=== PATIENT | male | born 1995 | race Caucasian/White ===

== ENCOUNTER 2016-09-06 06:05 | Emergency (ER) | payer BC ==
[2016-09-06] MEDS ORDERED: IPRATROPIUM/ALBUTEROL 0.5-2.5 MG/3 ML AMPUL NEB ONE (06:19)
[2016-09-06] MEDS ORDERED: PREDNISONE 20 MG TABLET PO ONE (06:19)
[2016-09-06] MEDS: ALBUTEROL SULFATE 0.083% NEB 2.5 MG/3 ML AMPUL NEB SCH ×2 (06:45→06:55)
--- NOTE | 2016-09-06 07:20 | ER Document Report ---
ED General - General Chief Complaint: Asthma Exacerbation Stated Complaint: DIFFICULTY BREATHING Mode of Arrival: Ambulatory Information source: Patient Notes: Patient presents to the emergency department with complaints of asthma flare the started this morning at 0500 when he woke up from work. Patient reports history of asthma his whole life. He denies intubation reports he's been hospitalized for asthma one time when he was in the fifth grade. Denies fever vomiting diarrhea. Just returned from [place]. TRAVEL OUTSIDE OF THE [place] IN LAST 30 DAYS: Yes - HPI Onset: This morning Onset/Duration: Sudden Quality of pain: No pain Severity: None Associated symptoms: None Exacerbated by: Denies Relieved by: Denies Similar symptoms previously: Yes Recently seen / treated by doctor: No - Related Data Allergies/Adverse Reactions: peanut Allergy (Verified 07/09/16 14:42) Past Medical History - General Information source: Patient - Social History Smoking Status: Unknown if Ever Smoked Cigarette use (# per day): No Chew tobacco use (# tins/day): No Frequency of alcohol use: Occasional Drug Abuse: None Occupation: construction Family History: DM - Mother, Other - MS mother Patient has suicidal ideation: No Patient has homicidal ideation: No Pulmonary Medical History: Reports: Hx Asthma Renal/ Medical History: Denies: Hx Peritoneal Dialysis Past Surgical History: Reports: Hx Adenoidectomy, Hx Tonsillectomy - Immunizations Hx Diphtheria, Pertussis, Tetanus Vaccination: No Review of Systems - Review of Systems Notes: Review HPI for review of systems., All other systems negative Physical Exam - Vital signs Vitals: Temp Pulse BP Pulse Ox 97.3 F 95 132/65 H 95 09/06/16 06:14 09/06/16 06:14 09/06/16 06:14 09/06/16 06:14 - Notes Notes: PHYSICAL EXAMINATION: GENERAL: Well-appearing and in no acute distress HEAD: Atraumatic, normocephalic. EYES: Pupils equal round , extraocular movements intact, sclera anicteric, conjunctiva are normal. ENT: nares patent, oropharynx clear without exudates. Moist mucous membranes. NECK: Normal range of motion, supple without lymphadenopathy LUNGS: CTAB and equal. faint bilateral expiratory anterior wheezes HEART: Regular rate and rhythm without murmurs ABDOMEN: Soft, no tenderness. No guarding, no rebound BACK: Denies pain EXTREMITIES: Normal range of motion, no pitting edema. No cyanosis. NEUROLOGICAL: Cranial nerves grossly intact. Normal sensory/motor PSYCH: Normal mood, normal affect. SKIN: Warm, Dry, normal turgor, no rashes or lesions noted Course - Re-evaluation Re-evalutation: 09/06/16 08:18 No wheezes respiratory rate even and unlabored patient ready to be discharged. Instructed on inhaler and steroids verbalized understanding. - Vital Signs Vital signs: Temp Pulse Resp BP Pulse Ox 98.0 F 82 16 128/62 H 97 09/06/16 08:27 09/06/16 08:27 09/06/16 08:27 09/06/16 08:27 09/06/16 08:27 - Diagnostic Test Radiology reviewed: Image reviewed, Reports reviewed - neg Discharge - Discharge Clinical Impression: Asthma Qualifiers: Asthma severity: unspecified severity Asthma complication type: uncomplicated Qualified Code(s): J45.909 - Unspecified asthma, uncomplicated Condition: Stable Disposition: HOME, SELF-CARE Instructions: Inhaled Bronchodilators (OM), Asthma (OM), Steroid Medication Additional Instructions: *You have been evaluated for asthma *Take medication as prescribed *Use inhaler as prescribed *Increase fluids *Monitor your temperature, take Tylenol as indicated *Follow up with a primary care provider within one week for recheck *Return to ED for increasing fever, cough, worsening condition, changes, needs Prescriptions: Prednisone [Deltasone 10 mg Tablet] 10 mg PO ASDIR PRN #15 tablet PRN Reason: Forms: Return to Work
[2016-09-06] MEDS ORDERED: ALBUTEROL SULFATE 0.083% NEB 2.5 MG/3 ML AMPUL NEB ONE (07:26)
[2016-09-06] MEDS ORDERED: ALBUTEROL SULFATE HFA (90 MCG/PUFF) 8 GM MDI (1 MDI/ER DISP) IH ONE (07:26)
[2016-09-06 08:40] VITALS: BP 128/62
== END 2016-09-06 08:34 | disposition home or self-care (01) ==
LOC: ER 06:05
DX: J45.909 Unspecified asthma, uncomplicated (principal); R06.02 Shortness of breath
CPT/HCPCS: 94640 ×2; 99284; 71020; J7512; J3490; J7620

== ENCOUNTER 2017-01-01 19:46 | Emergency (ER) | payer BC ==
--- NOTE | 2017-01-01 21:32 | ER Document Report ---
ED GI/ - General Chief Complaint: Possible STD exposure Stated Complaint: POSSIBLE STD EXPOSURE Time Seen by Provider: 01/01/17 21:19 Mode of Arrival: Ambulatory Information source: Patient Notes: 21-year-old male presents to ED for complaint of exposure to STDs. His partner was seen yesterday and tested positive for gonorrhea. He is here to be tested for STDs and treated. He states he has a history of asthma eczema fractured nose T&A and repair of a Fractured nose. Smokes a half pack a day rarely drinks and does not do drugs. TRAVEL OUTSIDE OF THE [place] IN LAST 30 DAYS: No - HPI Patient complains to provider of: Other - STD exposure Timing/Duration: Gradual Quality of pain: No pain Pain Level: Denies Sexual history: STD exposure Associated symptoms: Other - STD exposure Exacerbated by: Denies Relieved by: Denies Similar symptoms previously: No Recently seen / treated by doctor: No - Related Data Allergies/Adverse Reactions: peanut Allergy (Verified 07/09/16 14:42) Past Medical History - General Information source: Patient - Social History Smoking Status: Current Every Day Smoker Cigarette use (# per day): Yes - half pack a day Chew tobacco use (# tins/day): No Smoking Education Provided: Yes - less than 2 minutes Frequency of alcohol use: Rare Drug Abuse: None Occupation: construction Lives with: Alone Family History: Arthritis, CAD, DM - Mother, Hyperlipidemia, Hypertension, Other - MS mother Patient has suicidal ideation: No Patient has homicidal ideation: No - Past Medical History Cardiac Medical History: Reports: None Pulmonary Medical History: Reports: Hx Asthma EENT Medical History: Reports: None Neurological Medical History: Reports: None Endocrine Medical History: Reports: None Renal/ Medical History: Reports: None Malignancy Medical History: Reports None GI Medical History: Reports: None Musculoskeltal Medical History: Reports None Skin Medical History: Reports None Psychiatric Medical History: Reports: None Traumatic Medical History: Reports: None Infectious Medical History: Reports: None Past Surgical History: Reports: Hx Adenoidectomy, Hx Tonsillectomy - Immunizations Hx Diphtheria, Pertussis, Tetanus Vaccination: No Review of Systems - Review of Systems Constitutional: No symptoms reported EENT: No symptoms reported Cardiovascular: No symptoms reported Respiratory: No symptoms reported Gastrointestinal: No symptoms reported Genitourinary: No symptoms reported Male Genitourinary: No symptoms reported. denies: Penile discharge Musculoskeletal: No symptoms reported Skin: No symptoms reported Hematologic/Lymphatic: No symptoms reported Neurological/Psychological: No symptoms reported -: Yes All other systems reviewed and negative Physical Exam - Vital signs Vitals: Temp Pulse Resp BP Pulse Ox 97.5 F 87 18 121/70 96 01/01/17 19:58 01/01/17 19:58 01/01/17 19:58 01/01/17 19:58 01/01/17 19:58 Interpretation: Normal - General General appearance: Appears well, Alert - HEENT Head: Normocephalic, Atraumatic Eyes: Normal Pupils: PERRL - Respiratory Respiratory status: No respiratory distress Chest status: Nontender Breath sounds: Normal Chest palpation: Normal - Cardiovascular Rhythm: Regular Heart sounds: Normal auscultation Murmur: No - Abdominal Inspection: Normal Distension: No distension Bowel sounds: Normal Tenderness: Nontender Organomegaly: No organomegaly - Back Back: Normal, Nontender - Extremities General upper extremity: Normal inspection, Nontender, Normal color, Normal ROM , Normal temperature General lower extremity: Normal inspection, Nontender, Normal color, Normal ROM , Normal temperature, Normal weight bearing. No: Orin's sign - Neurological Neuro grossly intact: Yes Cognition: Normal Orientation: AAOx4 Annette Coma Scale Eye Opening: Spontaneous Annette Coma Scale Verbal: Oriented [place] Coma Scale Motor: Obeys Commands Annette Coma Scale Total: 15 Speech: Normal Motor strength normal: LUE, RUE, LLE, RLE Sensory: Normal - Psychological Associated symptoms: Normal affect, Normal mood - Skin Skin Temperature: Warm Skin Moisture: Dry Skin Color: Normal Course - Vital Signs Vital signs: Temp Pulse Resp BP Pulse Ox 97.5 F 76 18 124/66 97 01/01/17 19:58 01/01/17 22:00 01/01/17 22:00 01/01/17 22:00 01/01/17 22:00 Discharge - Discharge Clinical Impression: STD exposure Condition: Stable Disposition: HOME, SELF-CARE Instructions: Family Physicians / Practices Additional Instructions: You state your partner was positive for STDs gonorrhea. I have sent urine to test you also treated you so that she will not have to return back when your test comes back. I also sent a urine test for urinary tract infection. CEPHALOSPORINS: An antibiotic of the cephalosporin class has been prescribed. This type of antibiotic covers a wide variety of infections, including those of the skin, lungs, middle ear, and urinary tract. This antibiotic is somewhat similar to the penicillin family. In rare cases , a person who is allergic to penicillin will also be allergic to this medication. If you have had a severe allergic reaction to penicillin, and have not taken this antibiotic since that time, notify your doctor. Antibiotics which cover many germs ("broad spectrum" antibiotics) are more likely to cause diarrhea or "yeast" infections. Women prone to vaginal yeast problems may suffer an attack after taking this antibiotic. In infants, oral thrush (white spots "stuck" on the cheek) or yeast diaper rash may result. See your doctor if these problems occur. Call the doctor at once if you develop hives, itching, shortness of breath , or lightheadedness. AZITHROMYCIN: Azithromycin (Zithromax) is a broad spectrum antibiotic in the same class as erythromycin. It can treat a variety of bacterial infections, but is most frequently used for respiratory infections. Azithromycin is extremely long-lasting. It accumulates in body tissues and continues to kill bacteria for many days. In order to improve absorption, Azithromycin should be taken at least one hour before or two hours after a meal. It does not have the same strong tendency to upset the stomach as erythromycin and is usually very well tolerated. Patients who have had a rash or other true allergic reactions to erythromycin should not take this medication. Call if you develop gastrointestinal distress, severe diarrhea, rash, hives, itching, or shortness of breath. FOLLOW-UP CARE: If you have been referred to a physician for follow-up care, call the physician s office for an appointment as you were instructed or within the next two days. If you experience worsening or a significant change in your symptoms, notify the physician immediately or return to the Emergency Department at any time for re-evaluation. Forms: Return to Work
[2017-01-01] MEDS ORDERED: LIDOCAINE 1% INJ-PF (10 MG/ML) 30 ML SDV INJ ONE (21:36)
[2017-01-01] MEDS ORDERED: AZITHROMYCIN 250 MG TABLET PO ONE (21:36)
[2017-01-01] MEDS ORDERED: CEFTRIAXONE INJ 500 MG VIAL IM ONE (21:36)
[2017-01-01 21:56] LABS: APPEARANCE,URINE CLEAR; BILIRUBIN,URINE NEGATIVE (NEGATIVE); GLUCOSE, URINE NEGATIVE (NEGATIVE); KETONES,URINE NEGATIVE (NEGATIVE); LEUKOCYTE ESTERASE,URINE NEGATIVE (NEGATIVE); NITRITE,URINE NEGATIVE (NEGATIVE); PROTEIN,URINE NEGATIVE (NEGATIVE); URINE SPECIFIC GRAVITY 1.031; UROBILINOGEN,URINE NEGATIVE mg/dL (<2.0)
[2017-01-01 22:42] VITALS: BP 124/66
[2017-01-01 23:17] LABS: CHLAM PCR NOT DETECTED (NOT DETECT)
== END 2017-01-01 22:25 | disposition home or self-care (01) ==
LOC: ER 19:46
DX: Z20.2 Contact with and (suspected) exposure to infections with a predominantly sexual mode of transmission (principal); F17.210 Nicotine dependence, cigarettes, uncomplicated; Z91.010 Allergy to peanuts
CPT/HCPCS: 99283; 96372; 81001; 87491; 87591; J3490; J0696

== ENCOUNTER 2017-04-05 12:45 | Emergency (ER) | payer BC ==
[2017-04-05 12:50] VITALS: BP 137/89
[2017-04-05] MEDS ORDERED: ALBUTEROL SULFATE 0.083% NEB 2.5 MG/3 ML AMPUL NEB ONE (13:04)
[2017-04-05] MEDS ORDERED: IPRATROPIUM/ALBUTEROL 0.5-2.5 MG/3 ML AMPUL NEB ONE (13:04)
[2017-04-05] MEDS ORDERED: PREDNISONE 20 MG TABLET PO ONE (13:04)
[2017-04-05] MEDS ORDERED: ALBUTEROL SULFATE HFA (90 MCG/PUFF) 8 GM MDI (1 MDI/ER DISP) IH ONE (13:07)
--- NOTE | 2017-04-05 13:50 | ER Document Report ---
ED General - General Chief Complaint: Breathing Difficulty Stated Complaint: DIFFICULTY BREATHING Time Seen by Provider: 04/05/17 13:04 TRAVEL OUTSIDE OF THE [place] IN LAST 30 DAYS: No - HPI Patient complains to provider of: Shortness of breath Notes: Patient coming in for evaluation shortness of breath. Patient states ongoing for approximately a week with the weather changes. Denies any recent travel denies any fevers chills nausea vomiting. Patient states ran out of his inhalers earlier this morning. Requesting medication refill. - Related Data Allergies/Adverse Reactions: peanut Allergy (Verified 04/05/17 12:50) Past Medical History - Social History Smoking Status: Former Smoker Chew tobacco use (# tins/day): No Frequency of alcohol use: None Drug Abuse: None Family History: Arthritis, CAD, DM - Mother, Hyperlipidemia, Hypertension, Other - MS mother Pulmonary Medical History: Reports: Hx Asthma Renal/ Medical History: Denies: Hx Peritoneal Dialysis Past Surgical History: Reports: Hx Adenoidectomy, Hx Tonsillectomy - Immunizations Hx Diphtheria, Pertussis, Tetanus Vaccination: No Review of Systems - Review of Systems Constitutional: No symptoms reported EENT: No symptoms reported Cardiovascular: No symptoms reported Respiratory: Short of breath, Wheezing Gastrointestinal: No symptoms reported Genitourinary: No symptoms reported Male Genitourinary: No symptoms reported Musculoskeletal: No symptoms reported Skin: No symptoms reported Hematologic/Lymphatic: No symptoms reported Neurological/Psychological: No symptoms reported -: Yes All other systems reviewed and negative Physical Exam - Vital signs Vitals: Temp Pulse Resp BP Pulse Ox 98.3 F 91 18 137/89 H 100 04/05/17 12:47 04/05/17 12:47 04/05/17 12:47 04/05/17 12:47 04/05/17 12:47 Interpretation: Normal - General General appearance: Appears well, Alert - HEENT Head: Normocephalic, Atraumatic Eyes: Normal Pupils: PERRL - Respiratory Respiratory status: No respiratory distress Chest status: Nontender Breath sounds: Rhonchi, Wheezing Chest palpation: Normal - Cardiovascular Rhythm: Regular Heart sounds: Normal auscultation Murmur: No - Abdominal Inspection: Normal Distension: No distension Bowel sounds: Normal Tenderness: Nontender Organomegaly: No organomegaly - Back Back: Normal, Nontender - Extremities General upper extremity: Normal inspection, Nontender, Normal color, Normal ROM , Normal temperature General lower extremity: Normal inspection, Nontender, Normal color, Normal ROM , Normal temperature, Normal weight bearing. No: Orin's sign - Neurological Neuro grossly intact: Yes Cognition: Normal Orientation: AAOx4 [place] Coma Scale Eye Opening: Spontaneous Annette Coma Scale Verbal: Oriented [place] Coma Scale Motor: Obeys Commands Annette Coma Scale Total: 15 Speech: Normal Motor strength normal: LUE, RUE, LLE, RLE Sensory: Normal - Psychological Associated symptoms: Normal affect, Normal mood - Skin Skin Temperature: Warm Skin Moisture: Dry Skin Color: Normal Course - Re-evaluation Re-evalutation: 04/05/17 16:09 Patient given breathing treatments here in the ER and prednisone feeling much better after breathing treatments lung sounds reexamined lungs not clear. Patient will be discharged home to follow-up with primary care physician. - Vital Signs Vital signs: Temp Pulse Resp BP Pulse Ox 98.3 F 91 18 137/89 H 100 04/05/17 12:47 04/05/17 12:47 04/05/17 12:47 04/05/17 12:47 04/05/17 12:47 Discharge - Discharge Clinical Impression: Asthma exacerbation Condition: Good Disposition: HOME, SELF-CARE Instructions: Asthma ([facility]) Additional Instructions: Take medication as prescribed. Return to the ER symptoms worsen. Prescriptions: Albuterol Sulfate [Proair HFA] 1 - 2 puff IH Q4 PRN #1 inhaler PRN Reason: Prednisone [Deltasone] 60 mg PO DAILY 5 Days Forms: Return to Work
== END 2017-04-05 14:11 | disposition home or self-care (01) ==
LOC: ER 12:45
DX: J45.901 Unspecified asthma with (acute) exacerbation (principal); R06.02 Shortness of breath; Z87.891 Personal history of nicotine dependence
CPT/HCPCS: 94640 ×2; 99284; J7512; J3490; J7620

== ENCOUNTER 2017-07-11 15:24 | Emergency (ER) | payer BC ==
[2017-07-11 15:47] VITALS: BP 106/63
[2017-07-11] MEDS ORDERED: ALBUTEROL SULFATE HFA (90 MCG/PUFF) 8 GM MDI (1 MDI/ER DISP) IH PRN (16:56)
--- NOTE | 2017-07-11 17:00 | ER Document Report ---
ED General - General Chief Complaint: Asthma Exacerbation Stated Complaint: DIFFICULTY BREATHING Time Seen by Provider: 07/11/17 16:30 Mode of Arrival: Ambulatory Information source: Patient Notes: 22-year-old male history of asthma presents with complaints of asthma exacerbation. Patient notes once he gets inhaler he feels much better. He denies any fevers or chills admits to tightness. Denies any significant shortness of breath TRAVEL OUTSIDE OF THE [place] IN LAST 30 DAYS: No - HPI Onset: Yesterday Onset/Duration: Sudden Quality of pain: No pain Severity: Mild Pain Level: Denies Associated symptoms: Nonproductive cough, Shortness of breath Exacerbated by: Denies Relieved by: Denies Similar symptoms previously: Yes Recently seen / treated by doctor: No - Related Data Allergies/Adverse Reactions: peanut Allergy (Verified 07/11/17 15:46) Past Medical History - Social History Smoking Status: Never Smoker Cigarette use (# per day): No Chew tobacco use (# tins/day): No Smoking Education Provided: No Frequency of alcohol use: None Drug Abuse: None Family History: Arthritis, CAD, DM - Mother, Hyperlipidemia, Hypertension, Other - MS mother Patient has suicidal ideation: No Patient has homicidal ideation: No Pulmonary Medical History: Reports: Hx Asthma Renal/ Medical History: Denies: Hx Peritoneal Dialysis Past Surgical History: Reports: Hx Adenoidectomy, Hx Tonsillectomy - Immunizations Hx Diphtheria, Pertussis, Tetanus Vaccination: No Review of Systems - Review of Systems Notes: REVIEW OF SYSTEMS: CONSTITUTIONAL : Denies fever, chills, or sweats. Denies recent illness. EENT: Denies eye, ear, throat, or mouth pain or symptoms. Denies nasal or sinus congestion or discharge. Denies throat, tongue, or mouth swelling or difficulty swallowing. CARDIOVASCULAR: Denies chest pain. Denies palpitations or racing or irregular heart beat. Denies ankle edema. RESPIRATORY: Shortness of breath wheezing GASTROINTESTINAL: Denies abdominal pain or distention. Denies nausea, vomiting , or diarrhea. Denies blood in vomitus, stools, or per rectum. Denies black, tarry stools. Denies constipation. GENITOURINARY: Denies difficulty urinating, painful urination, burning, frequency, blood in urine, or discharge. MUSCULOSKELETAL: Denies back or neck pain or stiffness. Denies joint pain or swelling. SKIN: Denies rash, lesions or sores. HEMATOLOGIC : Denies easy bruising or bleeding. LYMPHATIC: Denies swollen, enlarged glands. NEUROLOGICAL: Denies confusion or altered mental status. Denies passing out or loss of consciousness. Denies dizziness or lightheadedness. Denies headache. Denies weakness or paralysis or loss of use of either side. Denies problems with gait or speech. Denies sensory loss, numbness, or tingling. Denies seizures. PSYCHIATRIC: Denies anxiety or stress. Denies depression, suicidal ideation, or homicidal ideation. ALL OTHER SYSTEMS REVIEWED AND NEGATIVE. Dictation was performed using [employer] voice recognition software PHYSICAL EXAMINATION: GENERAL: Well-appearing, well-nourished and in no acute distress. HEAD: Atraumatic, normocephalic. EYES: Pupils equal round and reactive to light, extraocular movements intact, sclera anicteric, conjunctiva are normal. ENT: Nares patent, oropharynx clear without exudates. Moist mucous membranes. NECK: Normal range of motion, supple without lymphadenopathy LUNGS: Coarse inspiratory expiratory wheezing all throughout HEART: Regular rate and rhythm without murmurs ABDOMEN: Soft, nontender, nondistended abdomen. No guarding, no rebound. No masses appreciated. Musculoskeletal: Normal range of motion, no pitting or edema. No cyanosis. NEUROLOGICAL: Cranial nerves grossly intact. Normal speech, normal gait. Normal sensory, motor exams PSYCH: Normal mood, normal affect. SKIN: Warm, Dry, normal turgor, no rashes or lesions noted. Physical Exam - Vital signs Vitals: Temp Pulse Resp BP Pulse Ox 98.6 F 90 16 106/63 97 07/11/17 15:44 07/11/17 15:44 07/11/17 15:44 07/11/17 15:44 07/11/17 15:44 Course - Re-evaluation Re-evalutation: 07/11/17 16:59 Patient requests information for sleep apnea I will give him a cat scan technologist for this I did offer breathing treatments here he defers states he gets very shaky after breathing treatments and just wants an inhaler After performing a Medical Screening Examination, I estimate there is LOW risk for ACUTE CORONARY SYNDROME, PULMONARY EMBOLI, RESPIRATORY FAILURE, SEPSIS OR MENINGITIS, thus I consider the discharge disposition reasonable. I have reevaluated this patient multiple times and no significant life threatening changes are noted. The patient and I have discussed the diagnosis and risks, and we agree with discharging home with close follow-up. We also discussed returning to the Emergency Department immediately if new or worsening symptoms occur. We have discussed the symptoms which are most concerning (e.g., changing or worsening pain, trouble swallowing or breathing, neck stiffness, fever) that necessitate immediate return. - Vital Signs Vital signs: Temp Pulse Resp BP Pulse Ox 98.6 F 90 16 106/63 97 07/11/17 15:44 07/11/17 15:44 07/11/17 15:44 07/11/17 15:44 07/11/17 15:44 Discharge - Discharge Clinical Impression: Asthma exacerbation Qualifiers: Asthma severity: mild Asthma persistence: intermittent Qualified Code(s): J45.21 - Mild intermittent asthma with (acute) exacerbation Condition: Stable Disposition: HOME, SELF-CARE Instructions: Asthma ([facility]) Prescriptions: Albuterol Sulfate [Proair HFA Inhalation Aerosol 8.5 gm MDI] 2 puff IH Q4H PRN # 1 mdi PRN Reason: Prednisone [Deltasone 20 mg Tablet] 3 tab PO DAILY 5 Days tablet Referrals: JOYCE GARZA MD [ACTIVE STAFF] - Follow up tomorrow
== END 2017-07-11 17:08 | disposition home or self-care (01) ==
LOC: ER 15:24
DX: J45.21 Mild intermittent asthma with (acute) exacerbation (principal); Z91.010 Allergy to peanuts
CPT/HCPCS: 99284; J3490

== ENCOUNTER 2017-10-20 10:19 | Emergency (ER) | payer BC ==
[2017-10-20 10:25] VITALS: BP 129/69
[2017-10-20] MEDS ORDERED: ALBUTEROL SULFATE HFA (90 MCG/PUFF) 8 GM MDI (1 MDI/ER DISP) IH PRN (10:39)
--- NOTE | 2017-10-20 10:41 | ER Document Report ---
ED General - General TRAVEL OUTSIDE OF THE [place] IN LAST 30 DAYS: No - General Chief Complaint: Asthma Exacerbation Stated Complaint: DIFFICULTY BREATHING Time Seen by Provider: 10/20/17 10:32 Notes: 22 y.o male presents to the ED with asthma and need for an inhaler prescription. He states that he has asthma that worsens in the spring with pollen where he needs to use the inhaler 2-3 times a day. He has not been hospitalized for asthma since age 4 or 5. he denies any fever or productive cough. (DARRICK NERI) - Related Data Allergies/Adverse Reactions: peanut Allergy (Verified 07/11/17 15:46) Past Medical History - General Information source: Patient - Social History Smoking Status: Former Smoker Chew tobacco use (# tins/day): No Frequency of alcohol use: None Drug Abuse: None Family History: Arthritis, CAD, DM - Mother, Hyperlipidemia, Hypertension, Other - MS mother Patient has suicidal ideation: No Patient has homicidal ideation: No Pulmonary Medical History: Reports: Hx Asthma Renal/ Medical History: Denies: Hx Peritoneal Dialysis Past Surgical History: Reports: Hx Adenoidectomy, Hx Tonsillectomy - Immunizations Hx Diphtheria, Pertussis, Tetanus Vaccination: No Review of Systems - Review of Systems Constitutional: denies: Fever Respiratory: See HPI, Other - asthma. denies: Cough, Sputum Physical Exam - General General appearance: Appears well, Alert In distress: None - Respiratory Breath sounds: Wheezing, Other - Good air movement - Cardiovascular Rhythm: Regular Heart sounds: Normal auscultation Murmur: No - Abdominal Distension: No distension - Extremities General upper extremity: Normal inspection, Normal ROM General lower extremity: Normal inspection, Normal ROM - Neurological Neuro grossly intact: Yes Cognition: Normal Orientation: AAOx4 - Psychological Associated symptoms: Normal affect, Normal mood - Skin Skin Temperature: Warm Skin Moisture: Dry Skin Color: Normal - Vital signs Vitals: Temp Pulse Resp BP Pulse Ox 97.8 F 75 18 129/69 H 96 10/20/17 10:10/20/17 10:10/20/17 10:10/20/17 10:10/20/17 10:22 - Vital Signs Vital signs: Temp Pulse Resp BP Pulse Ox 97.8 F 75 18 129/69 H 96 10/20/17 10:10/20/17 10:22 10/20/17 10:22 10/20/17 10:22 10/20/17 10:22 Discharge - Discharge Condition: Stable Disposition: HOME, SELF-CARE Prescriptions: Montelukast Sodium [Singulair 10 mg Tablet] 10 mg PO QHS #30 tablet Albuterol Sulfate [Proair HFA Inhalation Aerosol 8.5 gm MDI] 2 puff IH Q4H PRN # 1 mdi PRN Reason: Prednisone [Deltasone 20 mg Tablet] 2 tab PO DAILY 10 Days tablet Scribe Attestation: 10/21/17 23:07 I personally performed the services described documentation, reviewed and edited the documentation which was dictated to describe my presence, and it accurately records my words and actions. (LEI NOE) Scribe Documentation - Scribe Written by Héctor:: Héctor Tomas, 10/20/17 1043 acting as scribe for :: Jamal
== END 2017-10-20 10:57 | disposition home or self-care (01) ==
LOC: ER 10:19
DX: J45.901 Unspecified asthma with (acute) exacerbation (principal); R06.02 Shortness of breath; Z87.891 Personal history of nicotine dependence
CPT/HCPCS: 99284; J3490

== ENCOUNTER 2017-12-01 15:19 | Emergency (ER) | payer BC ==
[2017-12-01 15:31] VITALS: BP 129/89
[2017-12-01] MEDS ORDERED: IPRATROPIUM/ALBUTEROL 0.5-2.5 MG/3 ML AMPUL NEB ONE (15:40)
[2017-12-01] MEDS ORDERED: DEXAMETHASONE SOD PHOS INJ 10 MG/1 ML VIAL IM ONE (15:41)
--- NOTE | 2017-12-01 15:57 | ER Document Report ---
ED General - General Chief Complaint: Shortness Of Breath Stated Complaint: DIFFICULTY BREATHING Time Seen by Provider: 12/01/17 15:37 Mode of Arrival: Ambulatory Information source: Patient Notes: 22-year-old male presents to ED for complaint of asthma exacerbation cough in all day. He states he has finished his inhaler couple days ago and has had no breathing treatments for himself yesterday or today. He states he is having asthma attack yesterday and today. When I first examined him he was breathing even and unlabored does have a cough speaking in full sentences. TRAVEL OUTSIDE OF THE [place] IN LAST 30 DAYS: No - HPI Onset: Yesterday Onset/Duration: Gradual Quality of pain: Other - Tight Severity: Moderate Pain Level: 4 Associated symptoms: Chest pain, Nonproductive cough, Sinus pain/drainage, Shortness of breath Exacerbated by: Denies Relieved by: Denies Similar symptoms previously: Yes Recently seen / treated by doctor: No - Related Data Allergies/Adverse Reactions: peanut Allergy (Verified 07/11/17 15:46) Past Medical History - General Information source: Patient - Social History Smoking Status: Former Smoker Cigarette use (# per day): No Chew tobacco use (# tins/day): No Smoking Education Provided: No Drug Abuse: None 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 with: Family Family History: Arthritis, CAD, DM - Mother, Hyperlipidemia, Hypertension, Other - MS mother Patient has suicidal ideation: No Patient has homicidal ideation: No - Past Medical History Cardiac Medical History: Reports: None Pulmonary Medical History: Reports: Hx Asthma EENT Medical History: Reports: None Neurological Medical History: Reports: None Endocrine Medical History: Reports: None Renal/ Medical History: Reports: None Malignancy Medical History: Reports None GI Medical History: Reports: None Musculoskeltal Medical History: Reports None Skin Medical History: Reports None Psychiatric Medical History: Reports: None Traumatic Medical History: Reports: None Infectious Medical History: Reports: None Past Surgical History: Reports: Hx Adenoidectomy, Hx Tonsillectomy - Immunizations Immunizations up to date: No Hx Diphtheria, Pertussis, Tetanus Vaccination: No Review of Systems - Review of Systems Constitutional: No symptoms reported EENT: Nose congestion, Nose discharge, Sinus pressure, Sinus discharge Cardiovascular: No symptoms reported Respiratory: Cough, Wheezing. denies: Hurts to breathe, Hemoptysis, Short of breath, Sputum, Stridor Gastrointestinal: No symptoms reported Genitourinary: No symptoms reported Male Genitourinary: No symptoms reported Musculoskeletal: No symptoms reported Skin: No symptoms reported Hematologic/Lymphatic: No symptoms reported Neurological/Psychological: No symptoms reported Physical Exam - Vital signs Vitals: Temp Pulse Resp BP Pulse Ox 97.5 F 80 18 129/89 H 100 12/01/17 15:29 12/01/17 15:29 12/01/17 15:29 12/01/17 15:29 12/01/17 15:29 Interpretation: Normal - General General appearance: Appears well, Alert - HEENT Head: Normocephalic, Atraumatic Eyes: Normal Pupils: PERRL Ears: Normal External canal: Normal Tympanic membrane: Normal Sinus: Normal Nasal: Purulent discharge, Swelling Mouth/Lips: Normal Pharynx: Post nasal drainage Neck: Normal - Respiratory Respiratory status: No respiratory distress Chest status: Nontender Breath sounds: Decreased air movement, Wheezing. No: Productive cough, Rales, Rhonchi, Stridor Chest palpation: Normal - Cardiovascular Rhythm: Regular Heart sounds: Normal auscultation Murmur: No - Abdominal Inspection: Normal Distension: No distension Bowel sounds: Normal Tenderness: Nontender Organomegaly: No organomegaly - Back Back: Normal, Nontender - Extremities General upper extremity: Normal inspection, Nontender, Normal color, Normal ROM , Normal temperature General lower extremity: Normal inspection, Nontender, Normal color, Normal ROM , Normal temperature, Normal weight bearing. No: Orin's sign - Neurological Neuro grossly intact: Yes Cognition: Normal Orientation: AAOx4 [place] Coma Scale Eye Opening: Spontaneous [place] Coma Scale Verbal: Oriented Annette Coma Scale Motor: Obeys Commands Annette Coma Scale Total: 15 Speech: Normal Motor strength normal: LUE, RUE, LLE, RLE Sensory: Normal - Psychological Associated symptoms: Normal affect, Normal mood - Skin Skin Temperature: Warm Skin Moisture: Dry Skin Color: Normal Course - Re-evaluation Re-evalutation: 12/01/17 17:19 After performing a Medical Screening Examination, I estimate there is LOW risk for ACUTE CORONARY SYNDROME, RESPIRATORY FAILURE, SEPSIS OR MENINGITIS, thus I consider the discharge disposition reasonable. I gave the patient a prescription for an inhaler and prednisone and had him walk right now to get the prescriptions after he had finished his 3 treatments and his Decadron shot. His lungs were clear there was no wheezing his respirations were regular and unlabored when he left. I have reevaluated this patient multiple times and no significant life threatening changes are noted. The patient and I have discussed the diagnosis and risks, and we agree with discharging home with close follow-up. We also discussed returning to the Emergency Department immediately if new or worsening symptoms occur. We have discussed the symptoms which are most concerning (e.g., changing or worsening pain, trouble swallowing or breathing, neck stiffness, fever) that necessitate immediate return. - Vital Signs Vital signs: Temp Pulse Resp BP Pulse Ox 97.5 F 80 18 129/89 H 100 12/01/17 15:29 12/01/17 15:29 12/01/17 15:29 12/01/17 15:29 12/01/17 15:29 - Diagnostic Test Radiology reviewed: Image reviewed, Reports reviewed Discharge - Discharge Clinical Impression: URI (upper respiratory infection) Qualifiers: URI type: unspecified URI Qualified Code(s): J06.9 - Acute upper respiratory infection, unspecified Asthma exacerbation Qualifiers: Asthma severity: unspecified severity Asthma persistence: unspecified Qualified Code(s): J45.901 - Unspecified asthma with (acute) exacerbation Condition: Stable Disposition: HOME, SELF-CARE Instructions: Family Physicians / Practices Additional Instructions: ASTHMA: You have been diagnosed as having asthma. This is a condition where there is episodic tightness in the bronchial tubes. Allergies, infections, and polluted or cold air may be contributing factors. Emergency treatment of a severe asthma attack may include adrenaline shots , or bronchodilator aerosol. You may feel lightheaded, have a decreased exercise tolerance and a rapid pulse for an hour or two. Rest and get plenty of fluids. Home treatment of asthma requires bronchodilator drugs. These can be administered by injection, inhalation, or by mouth. Antibiotics and corticosteroids may be required for some patients. You should avoid chemical fumes, dusts, pollens, and exercising in very cold or dry air. If you smoke, stop!! If you develop a fever, increased wheezing, chest pain, or severe shortness of breath, you should contact the doctor immediately. UPPER RESPIRATORY ILLNESS: You have a viral infection of the respiratory passages -- a "cold." This common infection causes nasal congestion, drainage, and often sore throat and cough. It is highly contagious. The disease usually lasts about 10 to 14 days. There is no "cure" for the viral infection -- it must run its course. If there is a complication, such as bacterial infection in the nose, sinuses, middle ear, or bronchial tubes, antibiotics may be required. The antibiotics won't affect the virus. Drink plenty of fluids. A humidifier may help. An expectorant medication or decongestant may make you more comfortable. Use acetaminophen or ibuprofen for fever or aches. See the doctor if fever persists over two days, if there is any significant worsening of your symptoms, or if you simply fail to improve as expected. STEROID MEDICATION: You have been given an injection of or oral medicine of the cortisone/ steroid class. This medication is used to control inflammation or allergy. Laci t is usually only given for a short period of time, until the acute process subsides. There are usually no side effects from short-term use of cortisone-like medications. Some persons feel an increased sense of well-being and are not sleepy at bedtime. Long-term use of cortisone medications is best avoided, unless required for a severe condition. If your condition does not remit, or relapses after the course of corticosteroid medication, you should consult your physician. INHALED BRONCHODILATORS: You have received treatment(s) of and/or prescription for an inhaled bronchodilator -- a medication which stimulates the airways in the lung to dilate. This improves the flow of air in asthma, bronchitis, and emphysema. These medicines have some similarity to adrenaline, and can cause similar side effects: shakiness, racing heart, and a sense of nervousness. These side effects decrease with time. Contact your doctor if these side effects are severe. Do not over-use the medicine. Too-frequent use of the inhaler may make it ineffective. Call your doctor if the inhaler is not controlling your symptoms at the prescribed doses. SMOKING: If you smoke, you should stop smoking. The tar and chemicals in cigarette smoke are harmful. Smoking has been shown to cause: emphysema chronic bronchitis lung cancer mouth and throat cancer stomach and pancreas cancer premature aging defects In addition, smoking increases ear and lung infections in children of smokers. USE OF ACETAMINOPHEN (Tylenol): Acetaminophen may be taken for pain relief or fever control. It's much safer than aspirin, offering a wider range of "safe" dosages. It is safe during . Some brand names are Tylenol, Panadol, Datril, Anacin 3, Tempra, and Liquiprin. Acetaminophen can be repeated every four hours. The following are maximum recommended dosages: WEIGHT Dose Drops Elixir Chewable( 80mg) (LBS.) drprs=droppers tsp=teaspoon 6 40 mg 0.4 ml (1/2) 6-11 80 mg 0.8 ml (full) tsp 1 tab 12-16 120 mg 1 1/2 drprs 3/4 tsp 1 1/2 tabs 17-23 160 mg 2 drprs 1 tsp 2 tabs 24-30 240 mg 3 drprs 1 1/2 tsp 3 tabs 30-35 320 mg 2 tsp 4 tabs 36-41 360 mg 2 1/4 tsp 4 1/2 tabs 42-47 400 mg 2 1/2 tsp 5 tabs 48-53 480 mg 3 tsp 6 tabs 54-59 520 mg 3 1/4 tsp 6 1/2 tabs 60-64 560 mg 3 1/2 tsp 7 tabs 65-70 600 mg 3 3/4 tsp 7 1/2 tabs 71-76 640 mg 4 tsp 8 tabs 77-82 720 mg 4 1/2 tsp 9 tabs 83-88 800 mg 5 tsp 10 tabs >89 pounds or adults 650 mg to 900 mg Acetaminophen can be repeated every four hours. Maximum dose not to exceed 4000 mg a day. These maximum recommended dosages are slightly higher than the dosages written on the product container, but these dosages are very safe and below the toxic dosage for acetaminophen. FOLLOW-UP CARE: If you have been referred to a physician for follow-up care, call the physician s office for an appointment as you were instructed or within the next two days. If you experience worsening or a significant change in your symptoms, notify the physician immediately or return to the Emergency Department at any time for re-evaluation. Prescriptions: Albuterol Sulfate [Ventolin Hfa 8 gm Mdi (1 Mdi/ER Disp)] 2 puff IH Q4HP PRN #1 inhaler PRN Reason: Prednisone [Deltasone 10 mg Tablet] 10 mg PO ASDIR PRN #21 tablet PRN Reason: Forms: Elevated Blood Pressure, Smoking Cessation Education, Return to Work
[2017-12-01] MEDS: ALBUTEROL SULFATE 0.083% NEB 2.5 MG/3 ML AMPUL NEB SCH ×2 (16:01→16:11)
--- NOTE | 2017-12-01 16:39 | RADIOLOGY REPORT (SQ) ---
EXAM DESCRIPTION: CHEST 2 VIEWS COMPLETED DATE/TIME: 12/01/2017 4:29 pm REASON FOR STUDY: cough wheezing COMPARISON: 09/06/2016. EXAM PARAMETERS: NUMBER OF VIEWS: two views TECHNIQUE: Digital Frontal and Lateral radiographic views of the chest acquired. RADIATION DOSE: NA LIMITATIONS: none FINDINGS: LUNGS AND PLEURA: No opacities, masses or pneumothorax. No pleural effusion. MEDIASTINUM AND HILAR STRUCTURES: No masses or contour abnormalities. HEART AND VASCULAR STRUCTURES: Heart normal size. No evidence for failure. BONES: No acute findings. HARDWARE: None in the chest. OTHER: No other significant finding. IMPRESSION: NO ACUTE RADIOGRAPHIC FINDING IN THE CHEST. TECHNICAL DOCUMENTATION: JOB ID: [id number] [employer]- All Rights Reserved Reading location - IP/workstation name: [email or web address]
== END 2017-12-01 17:15 | disposition home or self-care (01) ==
LOC: ER 15:19
DX: J45.901 Unspecified asthma with (acute) exacerbation (principal); J06.9 Acute upper respiratory infection, unspecified; R05 Cough; J34.89 Other specified disorders of nose and nasal sinuses; R07.9 Chest pain, unspecified; R09.82 Postnasal drip; R09.81 Nasal congestion; Z91.010 Allergy to peanuts; Z87.891 Personal history of nicotine dependence
CPT/HCPCS: 94640 ×2; 99285; 96372; 87070; 87880; 71046; J1100; J7620

== ENCOUNTER 2017-12-27 06:05 | Emergency (ER) | payer BC ==
--- NOTE | 2017-12-27 06:56 | ER Document Report ---
ED Respiratory Problem - General Chief Complaint: Asthma Exacerbation Stated Complaint: ASTHMA PROBLEM Time Seen by Provider: 12/27/17 06:35 Notes: 22-year-old male to the emergency department chief complaint of wheezing and cough. States he was diagnosed with asthma around the age of 4. I struggle with it ever since. 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 Denies smoking himself. Denies marijuana use. States that the coughing is worse at night recently and getting worse in the mornings when he is waking up. Denies any fevers. TRAVEL OUTSIDE OF THE [place] IN LAST 30 DAYS: No - HPI Patient complains to provider of: Asthma, Short of breath Duration: Continuous Quality of pain: No pain Severity: Mild Pain Level: 0 Context: Hx asthma - Related Data Allergies/Adverse Reactions: peanut Allergy (Verified 07/11/17 15:46) Past Medical History - General Information source: Patient - Social History Smoking Status: Never Smoker Cigarette use (# per day): No Frequency of alcohol use: None Drug Abuse: None Lives with: Alone Family History: Arthritis, CAD, DM - Mother, Hyperlipidemia, Hypertension, Other - MS mother Pulmonary Medical History: Reports: Hx Asthma Renal/ Medical History: Denies: Hx Peritoneal Dialysis Past Surgical History: Reports: Hx Adenoidectomy, Hx Tonsillectomy - Immunizations Immunizations up to date: No Hx Diphtheria, Pertussis, Tetanus Vaccination: No Review of Systems - Review of Systems Constitutional: No symptoms reported EENT: No symptoms reported Cardiovascular: No symptoms reported Respiratory: Cough, Short of breath, Wheezing. denies: Hurts to breathe, Hemoptysis, Sputum, Stridor Gastrointestinal: No symptoms reported Musculoskeletal: No symptoms reported Skin: No symptoms reported Physical Exam - Vital signs Vitals: Temp Pulse Resp BP Pulse Ox 97.5 F 68 18 134/79 H 96 12/27/17 06:05 12/27/17 06:05 12/27/17 06:05 12/27/17 06:05 12/27/17 06:05 Interpretation: Normal - General General appearance: Appears well, Alert - Respiratory Respiratory status: No respiratory distress Chest status: Nontender Breath sounds: Nonproductive cough, Wheezing. No: Rales, Rhonchi, Stridor Chest palpation: Normal - Cardiovascular Rhythm: Regular Heart sounds: Normal auscultation Murmur: No - Abdominal Inspection: Normal Distension: No distension Bowel sounds: Normal Tenderness: Nontender Organomegaly: No organomegaly - Extremities General upper extremity: Normal inspection, Nontender, Normal color, Normal ROM , Normal temperature General lower extremity: Normal inspection, Nontender, Normal color, Normal ROM , Normal temperature, Normal weight bearing. No: Orin's sign - Neurological Neuro grossly intact: Yes Cognition: Normal Orientation: AAOx4 [place] Coma Scale Eye Opening: Spontaneous Sensory: Normal Course - Re-evaluation Re-evalutation: 12/27/17 07:10 This is a well-appearing male in no acute distress. Breathing treatment and prednisone given. Will refill prescription for albuterol, prednisone and Advair. Follow-up information given for primary care doctors. Will DC at this time. - Vital Signs Vital signs: Temp Pulse Resp BP Pulse Ox 97.5 F 68 18 134/79 H 96 12/27/17 06:05 12/27/17 06:05 12/27/17 06:05 12/27/17 06:05 12/27/17 06:05 Discharge - Discharge Clinical Impression: Asthma attack Qualifiers: Asthma severity: mild Asthma persistence: intermittent Qualified Code(s): J45.21 - Mild intermittent asthma with (acute) exacerbation Disposition: HOME, SELF-CARE Instructions: Asthma ([facility]) Prescriptions: Albuterol Sulfate [Proair HFA Inhalation Aerosol 8.5 gm MDI] 2 puff IH Q4H PRN # 1 mdi PRN Reason: Fluticasone/Salmeterol [Advair 250-50 Diskus 28 dose] 1 inh IH Q12H 30 Days #1 inhaler Prednisone [Deltasone 20 mg Tablet] 3 tab PO DAILY 4 Days #12 tablet Referrals: KATIE COHEN MD [ACTIVE STAFF] - Follow up as needed ROSS MARTINEZ DO [NO LOCAL MD] - Follow up in 3-5 days
[2017-12-27] MEDS ORDERED: ALBUTEROL SULFATE 0.083% NEB 2.5 MG/3 ML AMPUL NEB ONE (07:04)
[2017-12-27] MEDS ORDERED: PREDNISONE 20 MG TABLET PO ONE (07:05)
[2017-12-27 07:53] VITALS: BP 133/80
== END 2017-12-27 07:53 | disposition home or self-care (01) ==
LOC: ER 06:05
DX: J45.21 Mild intermittent asthma with (acute) exacerbation (principal); R05 Cough; R06.02 Shortness of breath; Z91.010 Allergy to peanuts
CPT/HCPCS: 94640; 99284; J7512

== ENCOUNTER 2018-01-13 18:42 | Emergency (ER) | payer BC ==
[2018-01-13] MEDS ORDERED: IPRATROPIUM/ALBUTEROL 0.5-2.5 MG/3 ML AMPUL NEB ONE (19:54)
[2018-01-13] MEDS ORDERED: BENZONATATE 100 MG CAPSULE PO ONE (19:54)
[2018-01-13] MEDS ORDERED: PREDNISONE 20 MG TABLET PO ONE (19:54)
--- NOTE | 2018-01-13 19:57 | ER Document Report ---
ED Medical Screen (RME) - General Chief Complaint: Asthma Exacerbation Stated Complaint: SHORT OF BREATH Time Seen by Provider: 01/13/18 19:49 Notes: RAPID MEDICAL EVALUATION DISCLOSURE I have seen this patient as part of a Rapid Medical Evaluation and, if applicable, placed any initially appropriate orders. The patient will be seen and fully evaluated, including a full history and physical exam, by a provider ( in Main ED or Fast Track) when a room becomes available. 22-year-old male here with complaints of shortness of breath chest tightness wheezing started approximately 2 hours ago. 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 He tried some of his albuterol inhaler (ProAir ) however states that he has run out. He does not have a nebulizer machine. He denies any other symptoms. He reports that his asthma rarely acts up but wonders if the dust construction site may have flared his asthma this time. EXAM Mild to moderate end expiratory wheezes with normal aeration Mildly tachycardic with regular rhythm TRAVEL OUTSIDE OF THE [place] IN LAST 30 DAYS: No - Related Data Allergies/Adverse Reactions: peanut Allergy (Verified 07/11/17 15:46) Past Medical History - Social History Chew tobacco use (# tins/day): No Frequency of alcohol use: None Pulmonary Medical History: Reports: Hx Asthma Renal/ Medical History: Denies: Hx Peritoneal Dialysis Past Surgical History: Reports: Hx Adenoidectomy, Hx Tonsillectomy - Immunizations Immunizations up to date: No Hx Diphtheria, Pertussis, Tetanus Vaccination: No Physical Exam - Vital signs Vitals: Temp Pulse Resp BP Pulse Ox 98.5 F 117 H 22 H 119/67 96 01/13/18 18:51 01/13/18 18:51 01/13/18 18:51 01/13/18 18:51 01/13/18 18:51 Course - Vital Signs Vital signs: Temp Pulse Resp BP Pulse Ox 98.5 F 117 H 22 H 119/67 96 01/13/18 18:51 01/13/18 18:51 01/13/18 18:51 01/13/18 18:51 01/13/18 18:51
[2018-01-13] MEDS ORDERED: ALBUTEROL SULFATE HFA (90 MCG/PUFF) 8 GM MDI (1 MDI/ER DISP) IH ONE (20:18)
--- NOTE | 2018-01-13 20:30 | ER Document Report ---
ED General - General Chief Complaint: Asthma Exacerbation Stated Complaint: SHORT OF BREATH Time Seen by Provider: 01/13/18 19:49 Notes: 22-year-old male here with complaints of shortness of breath chest tightness wheezing started approximately 2 hours ago. 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 He tried some of his albuterol inhaler (ProAir ) however states that he has run out. He does not have a nebulizer machine. He denies any other symptoms. He reports that his asthma rarely acts up but wonders if the dust construction site may have flared his asthma this time. TRAVEL OUTSIDE OF THE [place] IN LAST 30 DAYS: No - Related Data Allergies/Adverse Reactions: peanut Allergy (Verified 07/11/17 15:46) Past Medical History - Social History Smoking Status: Never Smoker Chew tobacco use (# tins/day): No Frequency of alcohol use: None Family History: Arthritis, CAD, DM - Mother, Hyperlipidemia, Hypertension, Other - MS mother Patient has suicidal ideation: No Patient has homicidal ideation: No Pulmonary Medical History: Reports: Hx Asthma Renal/ Medical History: Denies: Hx Peritoneal Dialysis Past Surgical History: Reports: Hx Adenoidectomy, Hx Tonsillectomy - Immunizations Immunizations up to date: No Hx Diphtheria, Pertussis, Tetanus Vaccination: No Review of Systems - Review of Systems Notes: See history of present illness for pertinent positive review of systems; otherwise all review of systems have been reviewed and are negative Physical Exam - Vital signs Vitals: Temp Pulse Resp BP Pulse Ox 98.5 F 117 H 22 H 119/67 96 01/13/18 18:51 01/13/18 18:51 01/13/18 18:51 01/13/18 18:51 01/13/18 18:51 - Notes Notes: PHYSICAL EXAMINATION: GENERAL: Well-appearing and in no acute distress. HEAD: Atraumatic, normocephalic. EYES: Pupils equal round and reactive to light, extraocular movements intact, sclera anicteric, conjunctiva are normal. ENT: nares patent, oropharynx clear without exudates. Moist mucous membranes. NECK: Normal range of motion, supple without lymphadenopathy LUNGS: Mild to moderate diffuse end expiratory wheezes but normal aeration. No respiratory distress or accessory muscle use visualized HEART: Mildly tachycardic rate and regular rhythm without murmurs ABDOMEN: Soft, no tenderness. No facial grimacing/wincing upon palpation. No guarding, no rebound. EXTREMITIES: Normal range of motion, no pitting edema. No cyanosis. NEUROLOGICAL: Cranial nerves grossly intact. Normal sensory/motor exams. PSYCH: Normal mood, normal affect. SKIN: Warm, Dry, normal turgor, no rashes or lesions noted Course - Re-evaluation Re-evalutation: 01/13/18 20:24 MEDICAL DECISION MAKING: Concern for reactive airway disease exacerbation On reexamination, after neb treatments, patient feels much better and moderate improvement in wheezing Will sent home with a take home inhaler as well as prescription inhaler steroids Instructed follow-up PCP next day or few Patient understands and agrees to the plan of care - Vital Signs Vital signs: Temp Pulse Resp BP Pulse Ox 98.5 F 117 H 22 H 119/67 96 01/13/18 18:51 01/13/18 18:51 01/13/18 18:51 01/13/18 18:51 01/13/18 18:51 Discharge - Discharge Clinical Impression: Wheezing Condition: Good Disposition: HOME, SELF-CARE Additional Instructions: You were seen in the emergency department at [facility]. You were given an inhaler to go home with from the ER. Finish the steroids and do not skip any doses. Ask your primary doctor about a nebulizer machine for your home. Please followup with your primary physician in the next few days for further management/evaluation. Please return to the emergency department for worsening of symptoms or any symptom that you deem to be concerning or life- threatening. Thank you for allowing us to be part of your care. Prescriptions: Albuterol Sulfate [Proair HFA Inhalation Aerosol 8.5 gm MDI] 2 puff IH Q4H PRN # 1 mdi PRN Reason: For Wheezing Prednisone [Deltasone 20 mg Tablet] 3 tab PO DAILY 4 Days tablet
[2018-01-13 20:43] VITALS: BP 115/91
== END 2018-01-13 20:50 | disposition home or self-care (01) ==
LOC: ER 18:42
DX: J45.909 Unspecified asthma, uncomplicated (principal); T48.996A Underdosing of other agents primarily acting on the respiratory system, initial encounter; Z91.128 Patient's intentional underdosing of medication regimen for other reason; Z91.14 Patient's other noncompliance with medication regimen; R00.0 Tachycardia, unspecified
CPT/HCPCS: 94640; 99284; J7512; J3490; J7620

== ENCOUNTER 2018-02-16 11:17 | Emergency (ER) | payer BC ==
[2018-02-16 11:21] VITALS: BP 134/78
[2018-02-16] MEDS ORDERED: ALBUTEROL SULFATE HFA (90 MCG/PUFF) 8 GM MDI (1 MDI/ER DISP) IH PRN (11:31)
--- NOTE | 2018-02-16 11:31 | ER Document Report ---
ED General - General Chief Complaint: Shortness Of Breath Stated Complaint: BREATHING PROBLEMS Time Seen by Provider: 02/16/18 11:25 Mode of Arrival: Ambulatory Information source: Patient Notes: 22-year-old male presents with history of asthma with concerns for asthma exacerbation. Patient notes he does not have an inhaler does not have a PCP does not have the money to afford his inhaler. He denies any fevers or chills patient notes no productivity to cough states this is similar ot previous exacerbation TRAVEL OUTSIDE OF THE [place] IN LAST 30 DAYS: No - HPI Onset: Just prior to arrival Onset/Duration: Sudden Quality of pain: No pain Severity: Mild Pain Level: Denies Associated symptoms: Nonproductive cough, Shortness of breath Exacerbated by: Coughing, Deep breathing Relieved by: Denies Similar symptoms previously: Yes Recently seen / treated by doctor: Yes - Related Data Allergies/Adverse Reactions: peanut Allergy (Verified 07/11/17 15:46) Past Medical History - Social History Smoking Status: Current Every Day Smoker Cigarette use (# per day): Yes Chew tobacco use (# tins/day): No Smoking Education Provided: No Family History: Arthritis, CAD, DM - Mother, Hyperlipidemia, Hypertension, Other - MS mother Pulmonary Medical History: Reports: Hx Asthma Renal/ Medical History: Denies: Hx Peritoneal Dialysis Past Surgical History: Reports: Hx Adenoidectomy, Hx Tonsillectomy - Immunizations Immunizations up to date: No Hx Diphtheria, Pertussis, Tetanus Vaccination: No Review of Systems - Review of Systems Notes: REVIEW OF SYSTEMS: CONSTITUTIONAL : Denies fever, chills, or sweats. Denies recent illness. EENT: Denies eye, ear, throat, or mouth pain or symptoms. Denies nasal or sinus congestion or discharge. Denies throat, tongue, or mouth swelling or difficulty swallowing. CARDIOVASCULAR: Denies chest pain. Denies palpitations or racing or irregular heart beat. Denies ankle edema. RESPIRATORY: Admits to cough GASTROINTESTINAL: Denies abdominal pain or distention. Denies nausea, vomiting , or diarrhea. Denies blood in vomitus, stools, or per rectum. Denies black, tarry stools. Denies constipation. GENITOURINARY: Denies difficulty urinating, painful urination, burning, frequency, blood in urine, or discharge. MUSCULOSKELETAL: Denies back or neck pain or stiffness. Denies joint pain or swelling. SKIN: Denies rash, lesions or sores. HEMATOLOGIC : Denies easy bruising or bleeding. LYMPHATIC: Denies swollen, enlarged glands. NEUROLOGICAL: Denies confusion or altered mental status. Denies passing out or loss of consciousness. Denies dizziness or lightheadedness. Denies headache. Denies weakness or paralysis or loss of use of either side. Denies problems with gait or speech. Denies sensory loss, numbness, or tingling. Denies seizures. PSYCHIATRIC: Denies anxiety or stress. Denies depression, suicidal ideation, or homicidal ideation. ALL OTHER SYSTEMS REVIEWED AND NEGATIVE. Dictation was performed using [employer] voice recognition software PHYSICAL EXAMINATION: GENERAL: Well-appearing, well-nourished and in no acute distress. HEAD: Atraumatic, normocephalic. EYES: Pupils equal round and reactive to light, extraocular movements intact, sclera anicteric, conjunctiva are normal. ENT: Nares patent, oropharynx clear without exudates. Moist mucous membranes. NECK: Normal range of motion, supple without lymphadenopathy LUNGS: Breath sounds clear to auscultation bilaterally and equal. No wheezes rales or rhonchi. HEART: Regular rate and rhythm without murmurs ABDOMEN: Soft, nontender, nondistended abdomen. No guarding, no rebound. No masses appreciated. Musculoskeletal: Normal range of motion, no pitting or edema. No cyanosis. NEUROLOGICAL: Cranial nerves grossly intact. Normal speech, normal gait. Normal sensory, motor exams PSYCH: Normal mood, normal affect. SKIN: Warm, Dry, normal turgor, no rashes or lesions noted. Physical Exam - Vital signs Vitals: Temp Pulse Resp BP Pulse Ox 98.7 F 87 17 134/78 H 97 02/16/18 11:20 02/16/18 11:20 02/16/18 11:20 02/16/18 11:20 02/16/18 11:20 Course - Re-evaluation Re-evalutation: 02/16/18 11:52 Patient's presentation most consistent with asthma, it appears he comes here often for his albuterol, he states that he does not have the money to afford an inhaler, therefore I will provide him with albuterol inhaler, he overall looks well is in no distress After performing a Medical Screening Examination, I estimate there is LOW risk for ACUTE CORONARY SYNDROME, PULMONARY EMBOLI, RESPIRATORY FAILURE, SEPSIS OR MENINGITIS, thus I consider the discharge disposition reasonable. I have reevaluated this patient multiple times and no significant life threatening changes are noted. The patient and I have discussed the diagnosis and risks, and we agree with discharging home with close follow-up. We also discussed returning to the Emergency Department immediately if new or worsening symptoms occur. We have discussed the symptoms which are most concerning (e.g., changing or worsening pain, trouble swallowing or breathing, neck stiffness, fever) that necessitate immediate return. - Vital Signs Vital signs: Temp Pulse Resp BP Pulse Ox 98.7 F 87 17 134/78 H 97 02/16/18 11:20 02/16/18 11:20 02/16/18 11:20 02/16/18 11:20 02/16/18 11:20 Discharge - Discharge Clinical Impression: Asthma exacerbation Condition: Stable Disposition: HOME, SELF-CARE Instructions: Asthma ([facility]) Additional Instructions: Please follow-up with your primary care physician next week per your previous appointment return immediately if there are any other concerns Prescriptions: Prednisone [Deltasone 20 mg Tablet] 3 tab PO DAILY 5 Days tablet
== END 2018-02-16 11:44 | disposition home or self-care (01) ==
LOC: ER 11:17
DX: J45.901 Unspecified asthma with (acute) exacerbation (principal); R06.02 Shortness of breath; R05 Cough; F17.210 Nicotine dependence, cigarettes, uncomplicated
CPT/HCPCS: 99284; J3490

== ENCOUNTER 2018-02-23 16:45 | Emergency (ER) | payer BC ==
[2018-02-23] MEDS ORDERED: IPRATROPIUM/ALBUTEROL 0.5-2.5 MG/3 ML AMPUL NEB ONE (17:29)
[2018-02-23] MEDS ORDERED: DEXAMETHASONE SOD PHOS INJ 10 MG/1 ML VIAL IM ONE (17:29)
[2018-02-23] MEDS ORDERED: LIDOCAINE 1% INJ-PF (10 MG/ML) 30 ML SDV INJ ONE (17:31)
--- NOTE | 2018-02-23 17:36 | RADIOLOGY REPORT (SQ) ---
EXAM DESCRIPTION: HAND RIGHT 3 VIEWS COMPLETED DATE/TIME: 02/23/2018 5:05 pm REASON FOR STUDY: Pain s/p hitting tree with hand . Punch. Pain and ecchymosis at the 5th digit. COMPARISON: None. EXAM PARAMETERS: NUMBER OF VIEWS: Three views. TECHNIQUE: AP, lateral and oblique radiographic images acquired of the right hand. LIMITATIONS: None. FINDINGS: MINERALIZATION: Normal. BONES: There is a mildly displaced, angulated fracture at the neck of the 5th metacarpal. SOFT TISSUES: There is mild soft tissue swelling at the fracture site. No radiopaque foreign body. IMPRESSION: Mildly displaced, angulated fracture at the neck of the right 5th metacarpal with mild a djacent soft tissue swelling. TECHNICAL DOCUMENTATION: JOB ID: [id number]- All Rights Reserved Reading location - IP/workstation name: [email or web address]
--- NOTE | 2018-02-23 17:41 | ER Document Report ---
HPI - HPI Pain Level: 5 Notes: Patient is a 22-year-old male who presents to the ED with 2 complaints. The first being right fifth knuckle pain of his right hand status post punching a tree 2-3 days ago. Patient states that he was in an argument with his brother and started punching the tree out of frustration. Patient states that he has had pain in that area since then with some swelling and some bruising noted. Pain does not radiate. Patient also complains that he has been having acute asthma exacerbations over the last couple weeks and has been using his inhaler regularly, but ran out of his inhaler. Patient states he would not have mentioned anything about his asthma but he is out of his inhaler needs a new prescription. He is eating and drinking without any difficulties. He is urinating normally and having normal bowel movements. Denies any headache, fever, neck pain, URI, sore throat, chest pain, palpitations, syncope, cough, shortness of breath, abdominal pain, nausea/vomiting/diarrhea, urinary retention , dysuria, hematuria, numbness/tingling, muscle paralysis/weakness, or rash. - ROS Systems Reviewed and Negative: Yes All other systems reviewed and negative - REPRODUCTIVE Reproductive: DENIES: : Past Medical History - Social History Smoking Status: Unknown if Ever Smoked Family History: Arthritis, CAD, DM - Mother, Hyperlipidemia, Hypertension, Other - MS mother Pulmonary Medical History: Reports: Hx Asthma Renal/ Medical History: Denies: Hx Peritoneal Dialysis Past Surgical History: Reports: Hx Adenoidectomy, Hx Tonsillectomy - Immunizations Immunizations up to date: No Hx Diphtheria, Pertussis, Tetanus Vaccination: No Vertical Provider Document - CONSTITUTIONAL Agree With Documented VS: Yes Notes: PHYSICAL EXAMINATION: GENERAL: Well-appearing, well-nourished and in no acute distress. HEAD: Atraumatic, normocephalic. EYES: Pupils equal round and reactive to light, extraocular movements intact, sclera anicteric, conjunctiva are normal. ENT: EAC clear b/l. TM's intact b/l without erythema, fluid, or perforation. Nares patent and without discharge. oropharynx clear without exudates. No tonsilar hypertrophy or erythema. Moist mucous membranes. No sinus tenderness. NECK: Normal range of motion, supple without lymphadenopathy LUNGS: wheezes b/l, no retractions or crackles/rales. HEART: Regular rate and rhythm without murmurs, rubs, gallops. Musculoskeletal: Rt hand: + swelling and ecchymosis to the rt 5th MCP joint. + tenderness associated. LROM to passive/active. Strength 4+/5 due to pain. N /V intact distal. Extremities: No cyanosis, clubbing, or edema b/l. Peripheral pulses 2+. Capillary refill less than 3 seconds. NEUROLOGICAL: Normal speech, normal gait. PSYCH: Normal mood, normal affect. SKIN: see above. Warm, Dry, normal turgor, no rashes or lesions noted. - INFECTION CONTROL TRAVEL OUTSIDE OF THE [place] IN LAST 30 DAYS: No Course - Re-evaluation Re-evalutation: 02/23/18 19:20 Patient is an afebrile, well-hydrated, 22-year-old male who presents to the ED with a right fifth MCP joint fracture of the hand as well as an acute asthma exacerbation. Vitals are acceptable without any significant tachycardia, tachypnea, or hypoxia. PE is otherwise unremarkable for any neurovascular compromise, obvious tendon/ligament rupture, open fracture, septic joint. Patient was given DuoNeb and Decadron for his wheezing which did improve lung sounds. I will be sending him home with a prescription for albuterol inhaler. See x-ray result which was reviewed with Dr. Berry. Dr. Berry performed a hematoma block with reduction attempt of the fracture at the fifth MCP joint w/ o much improvement. Patient tolerated procedure well without any complications. Ulnar gutter splint was placed. Tylenol is given p.o. Conservative measures otherwise for symptoms. Schedule an appointment with orthopedics for further evaluation and management. Recheck with your PCM this week as well. Return to the ED with any worsening/concerning symptoms otherwise as reviewed in discharge. Patient is in agreement. - Vital Signs Vital signs: Temp Pulse Resp BP Pulse Ox 97.8 F 79 20 117/67 99 02/23/18 17:10 02/23/18 17:10 02/23/18 17:10 02/23/18 17:10 02/23/18 17:10 Procedures - Immobilization Right Hand Time completed: 19:15 Pre-Proc Neuro Vasc Exam: Normal Immobilizer type: Sugar tong Performed by: PCT Post-Proc Neuro Vasc Exam: Normal, Unchanged from pre-exam - Joint Reduction/Fracture Care Right Finger 5th digit Time completed: 18:05 Consent obtained: Yes Conscious sedation: No Pre-procedure NV exam: Yes - normal Fracture: Closed Post-procedure NV exam: Yes - normal Post-reduction x-ray: Joint reduced - minimally Reduction attempts: 1 - Dr. Berry performed block and attempt. Complications: No Discharge - Discharge Clinical Impression: Fracture of fifth metacarpal bone Qualifiers: Encounter type: initial encounter Fracture type: closed Metacarpal location: neck Fracture alignment: displaced Laterality: right Qualified Code(s): S62.336A - Displaced fracture of neck of fifth metacarpal bone, right hand, initial encounter for closed fracture Acute asthma exacerbation Qualifiers: Asthma severity: mild Asthma persistence: intermittent Qualified Code(s): J45.21 - Mild intermittent asthma with (acute) exacerbation Condition: Stable Disposition: HOME, SELF-CARE Instructions: Fractured Fifth Metacarpal ([facility]), Asthma ([facility]), Splint Precautions ([facility]) Additional Instructions: Rest, Ice, Compression, Elevation Use crutches/splint/sling as directed Tylenol/ibuprofen as needed Use inhaler as directed F/u with your PCP in 3-5 days for a recheck Call orthopedics tomorrow to schedule an appointment for further evaluation and management Return to the ED with any worsening symptoms and/or development of fever, headache, chest pain, palpitations, syncope, shortness of breath, trouble breathing, abdominal pain, n/v/d, muscle weakness/paralysis, numbness/tingling, swelling, redness, or other worsening symptoms that are concerning to you. Prescriptions: Naproxen 500 mg PO BID PRN #30 tablet PRN Reason: Referrals: [facility]) [Provider Group] - 02/25/18
--- NOTE | 2018-02-23 18:56 | RADIOLOGY REPORT (SQ) ---
EXAM DESCRIPTION: HAND RIGHT 3 VIEWS COMPLETED DATE/TIME: 02/23/2018 6:47 pm REASON FOR STUDY: Reduction attempt COMPARISON: 02/23/2018 EXAM PARAMETERS: NUMBER OF VIEWS: Three views. TECHNIQUE: AP, lateral and oblique radiographic images acquired of the right hand. LIMITATIONS: None. FINDINGS: MINERALIZATION: Normal. BONES: Fracture 5th metacarpal. Similar in appearance to pre reduction. JOINTS: No effusions. SOFT TISSUES: No soft tissue swelling. No foreign body. OTHER: No other significant finding. IMPRESSION: No significant change in the alignment of the previously noted 5th metacarpal fracture. TECHNICAL DOCUMENTATION: JOB ID: [id number] [employer]- All Rights Reserved Reading location - IP/workstation name: [email or web address]
[2018-02-23 19:39] VITALS: BP 126/74
== END 2018-02-23 19:41 | disposition home or self-care (01) ==
LOC: ER 16:45
PROC: 0PSTXZZ Reposition Right Finger Phalanx, External Approach (ICD-10-PCS; principal; 2018-02-23)
DX: S62.336A Displaced fracture of neck of fifth metacarpal bone, right hand, initial encounter for closed fracture (principal); J45.21 Mild intermittent asthma with (acute) exacerbation; M79.644 Pain in right finger(s); M79.89 Other specified soft tissue disorders; W22.8XXA Striking against or struck by other objects, initial encounter
CPT/HCPCS: 94640; 99285; 96372; 73130; 26755; J3490; J1100; J7620

== ENCOUNTER 2018-03-25 06:40 | Emergency (ER) | payer BC ==
[2018-03-25] MEDS ORDERED: IPRATROPIUM/ALBUTEROL 0.5-2.5 MG/3 ML AMPUL NEB ONE (07:02)
[2018-03-25] MEDS ORDERED: PREDNISONE 20 MG TABLET PO ONE (07:02)
--- NOTE | 2018-03-25 07:09 | ER Document Report ---
ED Respiratory Problem - General Chief Complaint: Breathing Difficulty Stated Complaint: BREATHING TROUBLE Time Seen by Provider: 03/25/18 07:09 Mode of Arrival: Ambulatory Information source: Patient Notes: 23 yo male former smoker with hx asthma has cough, wheeze for several days. No fever. No chest pain or sob. Needs albuterol MDI. TRAVEL OUTSIDE OF THE [place] IN LAST 30 DAYS: No - Related Data Allergies/Adverse Reactions: peanut Allergy (Verified 07/11/17 15:46) Past Medical History - General Information source: Patient - Social History Smoking Status: Former Smoker Chew tobacco use (# tins/day): No Frequency of alcohol use: None Drug Abuse: None Lives with: Spouse/Significant other Family History: Arthritis, CAD, DM - Mother, Hyperlipidemia, Hypertension, Other - MS mother Patient has suicidal ideation: No Patient has homicidal ideation: No Pulmonary Medical History: Reports: Hx Asthma Renal/ Medical History: Denies: Hx Peritoneal Dialysis Past Surgical History: Reports: Hx Adenoidectomy, Hx Tonsillectomy - ADENOIDS - Immunizations Immunizations up to date: No Hx Diphtheria, Pertussis, Tetanus Vaccination: No Review of Systems - Review of Systems Constitutional: No symptoms reported EENT: No symptoms reported Cardiovascular: No symptoms reported Respiratory: See HPI Gastrointestinal: No symptoms reported Genitourinary: No symptoms reported Male Genitourinary: No symptoms reported Musculoskeletal: No symptoms reported Skin: No symptoms reported Hematologic/Lymphatic: No symptoms reported Neurological/Psychological: No symptoms reported Physical Exam - Vital signs Vitals: Temp Pulse Resp BP Pulse Ox 97.7 F 72 18 131/88 H 98 03/25/18 06:44 03/25/18 06:44 03/25/18 06:44 03/25/18 06:44 03/25/18 06:44 Interpretation: Normal - General General appearance: Appears well, Alert - HEENT Head: Normocephalic, Atraumatic Eyes: Normal Pupils: PERRL Tympanic membrane: Normal Pharynx: Normal Neck: Supple. No: Lymphadenopathy - Respiratory Respiratory status: No respiratory distress Chest status: Nontender Breath sounds: Wheezing - insp and exp bilateral. No: Rales Chest palpation: Normal - Cardiovascular Rhythm: Regular Heart sounds: Normal auscultation Murmur: No - Abdominal Inspection: Normal Distension: No distension Bowel sounds: Normal Tenderness: Nontender Organomegaly: No organomegaly - Back Back: Normal, Nontender - Extremities General upper extremity: Normal inspection, Nontender, Normal color, Normal ROM , Normal temperature General lower extremity: Normal inspection, Nontender, Normal color, Normal ROM , Normal temperature, Normal weight bearing. No: Orin's sign - Neurological Neuro grossly intact: Yes Cognition: Normal Orientation: AAOx4 Annette Coma Scale Eye Opening: Spontaneous Annette Coma Scale Verbal: Oriented Annette Coma Scale Motor: Obeys Commands [place] Coma Scale Total: 15 Speech: Normal Motor strength normal: LUE, RUE, LLE, RLE Sensory: Normal - Psychological Associated symptoms: Normal affect, Normal mood - Skin Skin Temperature: Warm Skin Moisture: Dry Skin Color: Normal Course - Re-evaluation Re-evalutation: 03/25/18 minimal exp wheeze remains after all the nebs. - Vital Signs Vital signs: Temp Pulse Resp BP Pulse Ox 97.4 F 95 18 125/72 99 03/25/18 09:01 03/25/18 09:01 03/25/18 09:01 03/25/18 09:01 03/25/18 09:01 Discharge - Discharge Clinical Impression: Bronchitis Condition: Good Disposition: HOME, SELF-CARE Instructions: Bronchitis With Bronchospasm (Wheezing) ([facility]), Inhaled Bronchodilators ([facility]), Steroid Medication Additional Instructions: Use the albuterol metered-dose inhaler 2 puffs every 3-4 hours Plenty of fluids Return to be seen if you have fever chills chest pain shortness of breath myalgias Prescriptions: Albuterol Sulfate [Proair HFA Inhalation Aerosol 8.5 gm MDI] 2 puff IH Q3HP PRN #1 [email or web address] PRN Reason: Prednisone [Deltasone 20 mg Tablet] 40 mg PO DAILY #8 tablet Forms: Return to Work
[2018-03-25] MEDS ORDERED: ALBUTEROL SULFATE 0.083% NEB 2.5 MG/3 ML AMPUL NEB SCH (07:18)
[2018-03-25] MEDS ORDERED: ALBUTEROL SULFATE 0.083% NEB 2.5 MG/3 ML AMPUL NEB ONE (07:20)
[2018-03-25 09:03] VITALS: BP 125/72
[2018-03-25] MEDS ORDERED: ALBUTEROL SULFATE HFA (90 MCG/PUFF) 200 PUFF/8.5 GM MDI IH ONE (09:04)
== END 2018-03-25 09:16 | disposition home or self-care (01) ==
LOC: ER 06:40
DX: J40 Bronchitis, not specified as acute or chronic (principal); R06.00 Dyspnea, unspecified; Z87.891 Personal history of nicotine dependence; Z91.010 Allergy to peanuts
CPT/HCPCS: 94640 ×2; 99284; J7512; J3490; J7620

== ENCOUNTER 2018-06-08 15:58 | Emergency (ER) | payer BC ==
[2018-06-08 16:17] VITALS: BP 121/73
[2018-06-08] MEDS ORDERED: PREDNISONE 20 MG TABLET PO ONE (16:43)
[2018-06-08] MEDS ORDERED: ALBUTEROL SULFATE HFA (90 MCG/PUFF) 8 GM MDI (1 MDI/ER DISP) IH ONE (16:43)
[2018-06-08] MEDS ORDERED: IPRATROPIUM/ALBUTEROL 0.5-2.5 MG/3 ML AMPUL NEB ONE (16:43)
--- NOTE | 2018-06-08 16:45 | ER Document Report ---
ED General - General Chief Complaint: Asthma Exacerbation Stated Complaint: SHORTNESS OF BREATH Time Seen by Provider: 06/08/18 16:39 Notes: Patient is a 23-year-old male with history of asthma that presents to the emergency department for chief complaint of shortness of breath. Patient reports that he ran out of his inhalers today, he is feeling more short of breath and noticed more wheezing and having a cough. So he decided come to the emergency department. Really started to flareup over the last hour. He does have an appointment coming up with his primary care physician, but states he is currently out of his inhaler. He denies noting any fevers, chills, night sweats , chest pain, sputum production, nausea, vomiting or abdominal pain Past Medical History: Asthma Past Surgical History: Tonsillectomy and adenoidectomy Social History: Denies tobacco, alcohol or drug use Family History: Reviewed and noncontributory for presenting illness Allergies: Reviewed, see documented allergy list. REVIEW OF SYSTEMS: Unless otherwise stated in this report the patient's positive and negative responses for review of systems for constitutional, eyes, ENT, cardiovascular, respiratory, gastrointestinal, neurological, genitourinary, musculoskeletal, and integumentary systems and related systems to the presenting problem are either as stated in the HPI or were not pertinent or were negative for the symptoms and/or complaints related to the presenting medical problem. PHYSICAL EXAMINATION: Vital signs reviewed, nursing noted reviewed. GENERAL: Well-appearing, well-nourished and in no acute distress. HEAD: Atraumatic, normocephalic. EYES: Eyes appear normal, extraocular movements intact, sclera anicteric, conjunctiva are normal. ENT: nares patent, oropharynx clear without exudates. Moist mucous membranes. NECK: Normal range of motion, supple without lymphadenopathy LUNGS: Diffuse expiratory wheezing throughout all lung guillaume, no acute respiratory distress, no accessory muscle use, or increased work of breathing HEART: Regular rate and rhythm without murmurs ABDOMEN: Soft, nontender, normoactive bowel sounds. No rebound, guarding, or rigidity. No masses appreciated. EXTREMITIES: Nontender, good range of motion, no pitting or edema. NEUROLOGICAL: No focal neurological deficits. Moves all extremities spontaneously Motor and sensory grossly intact on exam. PSYCH: Normal mood, normal affect. SKIN: Warm, Dry, normal turgor, no rashes or lesions noted on exposed skin TRAVEL OUTSIDE OF THE [place] IN LAST 30 DAYS: No - Related Data Allergies/Adverse Reactions: peanut Allergy (Verified 07/11/17 15:46) Past Medical History - Social History Smoking Status: Former Smoker Family History: Arthritis, CAD, DM - Mother, Hyperlipidemia, Hypertension, Other - MS mother Pulmonary Medical History: Reports: Hx Asthma Renal/ Medical History: Denies: Hx Peritoneal Dialysis Past Surgical History: Reports: Hx Adenoidectomy, Hx Tonsillectomy - ADENOIDS - Immunizations Immunizations up to date: No Hx Diphtheria, Pertussis, Tetanus Vaccination: No Physical Exam - Vital signs Vitals: Temp Pulse Resp BP Pulse Ox 97.4 F 86 14 121/73 96 06/08/18 16:15 06/08/18 16:15 06/08/18 16:15 06/08/18 16:15 06/08/18 16:15 Course - Re-evaluation Re-evalutation: Patient seen and examined vital signs reviewed. Patient was evaluated and treated as appropriate for the patient's presenting symptoms and complaint, with consideration of any critical or life threatening conditions that may be associated with their obtained history and exam as noted above. Patient was treated with DuoNeb breathing treatment, and oral prednisone The patient was re-evaluated and was much improved, lung sounds were clear after DuoNeb's Evaluation was most consistent with acute asthma exacerbation, patient given an albuterol inhaler to take home, and prescription for prednisone, as well as an additional prescription for albuterol inhaler, advised to follow-up with a primary care. Plan of care was discussed with the patient at this point, after careful consideration I feel that that patient can be discharged from the emergency department, the patient was educated treatments and reasons to return to the emergency department based on their presumed diagnosis as noted above, they were advised to followup with a primary care physician in 2-3 days. Patient was agreeable to plan of care. *Note is created using voice recognition software and may contain spelling, syntax or grammatical errors. - Vital Signs Vital signs: Temp Pulse Resp BP Pulse Ox 97.4 F 86 14 121/73 96 06/08/18 16:15 06/08/18 16:15 06/08/18 16:15 06/08/18 16:15 06/08/18 16:15 Discharge - Discharge Clinical Impression: Acute asthma exacerbation Qualifiers: Asthma severity: unspecified severity Asthma persistence: unspecified Qualified Code(s): J45.901 - Unspecified asthma with (acute) exacerbation Condition: Stable Disposition: HOME, SELF-CARE Instructions: Asthma ([facility]) Additional Instructions: Please return to the emergency department if you have any worsening, or concern of your symptoms. Please return to the emergency department if you develop chest pain, difficulty breathing, severe abdominal pain, or ongoing vomiting. Please follow-up with your primary care physician in 2-3 days and any other recommended physicians. If prescribed, take all medications as directed. If you have any questions or concerns do not hesitate to return the emergency department for evaluation. Prescriptions: Albuterol Sulfate [Proair HFA Inhalation Aerosol 8.5 gm MDI] 2 puff IH Q4H PRN # 1 mdi PRN Reason: Prednisone [Deltasone 20 mg Tablet] 2 tab PO DAILY 5 Days #8 tablet Referrals: GENEVA RODRIGEZ MD [[facility]] - Follow up in 3-5 days (or your primary care. )
== END 2018-06-08 17:05 | disposition home or self-care (01) ==
LOC: ER 15:58
DX: J45.901 Unspecified asthma with (acute) exacerbation (principal); R06.02 Shortness of breath; R05 Cough; Z87.891 Personal history of nicotine dependence
CPT/HCPCS: 94640; 99284; J7512; J3490; J7620

== ENCOUNTER 2018-07-10 09:27 | Emergency (ER) | payer BC ==
[2018-07-10 09:33] VITALS: BP 126/108
[2018-07-10] MEDS ORDERED: IPRATROPIUM/ALBUTEROL 0.5-2.5 MG/3 ML AMPUL NEB ONE (09:38)
[2018-07-10] MEDS ORDERED: PREDNISONE 20 MG TABLET PO ONE (09:38)
--- NOTE | 2018-07-10 09:44 | ER Document Report ---
ED General - General Chief Complaint: Breathing Difficulty Stated Complaint: ASTHMA Time Seen by Provider: 07/10/18 09:35 Mode of Arrival: Ambulatory Information source: Patient Notes: Chief complaint: Shortness of breath History of complain: 23 years old male with a history of asthma ran out of his inhalers for the last few days. Presents today with wheezing. Has asthma since childhood. Stopped smoking about 2 weeks ago. No fever chills or other constitutional symptoms. Onset: Gradual Duration: Last few days Severity: Moderate Quality: Wheezing Context: Asthma Exacerbating factor and relieving factors: Exertion REVIEW OF SYSTEMS: CONSTITUTIONAL : Denies fever, chills, or sweats. Denies recent illness. EENT: Denies eye, ear, throat, or mouth pain or symptoms. Denies nasal or sinus congestion or discharge. Denies throat, tongue, or mouth swelling or difficulty swallowing. CARDIOVASCULAR: Denies chest pain. Denies palpitations or racing or irregular heart beat. Denies ankle edema. RESPIRATORY: Denies cough, cold, or chest congestion. Denies shortness of breath, difficulty breathing, or wheezing. GASTROINTESTINAL: Denies abdominal pain or distention. Denies nausea, vomiting , or diarrhea. Denies blood in vomitus, stools, or per rectum. Denies black, tarry stools. Denies constipation. GENITOURINARY: Denies difficulty urinating, painful urination, burning, frequency, blood in urine, or discharge. MUSCULOSKELETAL: Denies back or neck pain or stiffness. Denies joint pain or swelling. SKIN: Denies rash, lesions or sores. HEMATOLOGIC : Denies easy bruising or bleeding. LYMPHATIC: Denies swollen, enlarged glands. NEUROLOGICAL: Denies confusion or altered mental status. Denies passing out or loss of consciousness. Denies dizziness or lightheadedness. Denies headache. Denies weakness or paralysis or loss of use of either side. Denies problems with gait or speech. Denies sensory loss, numbness, or tingling. Denies seizures. PSYCHIATRIC: Denies anxiety or stress. Denies depression, suicidal ideation, or homicidal ideation. ALL OTHER SYSTEMS REVIEWED AND NEGATIVE. Dictation was performed using [employer] voice recognition software PHYSICAL EXAMINATION: GENERAL: Well-appearing, well-nourished and in no acute distress. HEAD: Atraumatic, normocephalic. EYES: Pupils equal round and reactive to light, extraocular movements intact, sclera anicteric, conjunctiva are normal. ENT: Nares patent, oropharynx clear without exudates. Moist mucous membranes. NECK: Normal range of motion, supple without lymphadenopathy LUNGS: Breath sounds .... Bilateral expiratory and inspiratory wheezing were heard throughout the lung field HEART: Regular rate and rhythm without murmurs ABDOMEN: Soft, nontender, nondistended abdomen. No guarding, no rebound. No masses appreciated. Musculoskeletal: Normal range of motion, no pitting or edema. No cyanosis. NEUROLOGICAL: Cranial nerves grossly intact. Normal speech, normal gait. Normal sensory, motor exams PSYCH: Normal mood, normal affect. SKIN: Warm, Dry, normal turgor, no rashes or lesions noted. TRAVEL OUTSIDE OF THE [place] IN LAST 30 DAYS: No - HPI Notes: Dictated - Related Data Allergies/Adverse Reactions: No Known Drug Allergies Allergy (Verified 07/10/18 09:29) peanut Allergy (Verified 07/10/18 09:29) Past Medical History - Social History Smoking Status: Former Smoker Chew tobacco use (# tins/day): No Frequency of alcohol use: None Drug Abuse: None Lives with: Family Family History: Arthritis, CAD, DM - Mother, Hyperlipidemia, Hypertension, Other - MS mother Patient has suicidal ideation: No Patient has homicidal ideation: No Pulmonary Medical History: Reports: Hx Asthma Renal/ Medical History: Denies: Hx Peritoneal Dialysis Past Surgical History: Reports: Hx Adenoidectomy, Hx Tonsillectomy - ADENOIDS - Immunizations Immunizations up to date: No Hx Diphtheria, Pertussis, Tetanus Vaccination: No Review of Systems - Review of Systems Notes: Dictated Physical Exam - Vital signs Vitals: Temp Pulse Resp BP Pulse Ox 98.1 F 79 18 126/108 H 97 07/10/18 09:32 07/10/18 09:32 07/10/18 09:32 07/10/18 09:32 07/10/18 09:32 - Notes Notes: Dictated Course - Re-evaluation Re-evalutation: 07/10/18 09:40 Given breathing treatment and refills - Vital Signs Vital signs: Temp Pulse Resp BP Pulse Ox 98.1 F 79 18 126/108 H 97 07/10/18 09:32 07/10/18 09:32 07/10/18 09:32 07/10/18 09:32 07/10/18 09:32 Discharge - Discharge Clinical Impression: Exacerbation of allergic asthma Condition: Fair Disposition: HOME, SELF-CARE Instructions: Asthma ([facility]) Prescriptions: Montelukast Sodium [Singulair 10 mg Tablet] 10 mg PO QHS #30 tablet Albuterol Sulfate [Proair Hfa Inhalation Aerosol 8.5 gm Mdi] 2 puff IH Q4 PRN # 1 mdi PRN Reason: Fluticasone Propionate [Flovent Diskus 100 mcg] 1 puff IH BID #1 diskus Prednisone 10 mg PO ASDIR PRN #1 tab.ds.pk PRN Reason:
== END 2018-07-10 10:10 | disposition home or self-care (01) ==
LOC: ER 09:27
DX: J45.901 Unspecified asthma with (acute) exacerbation (principal); Z87.891 Personal history of nicotine dependence
CPT/HCPCS: 94640; 99284; J7512; J7620

== ENCOUNTER 2018-08-03 08:23 | Emergency (ER) | payer BC ==
[2018-08-03] MEDS ORDERED: METHYLPREDNISOLONE INJ 125 MG/2 ML SDV IM ONE (08:57)
[2018-08-03] MEDS ORDERED: IPRATROPIUM/ALBUTEROL 0.5-2.5 MG/3 ML AMPUL NEB ONE (08:57)
--- NOTE | 2018-08-03 08:59 | ER Document Report ---
ED General - General Chief Complaint: Shortness Of Breath Stated Complaint: DIFFICULTY BREATHING Time Seen by Provider: 08/03/18 08:48 TRAVEL OUTSIDE OF THE [place] IN LAST 30 DAYS: No - HPI Notes: Patient is a 23-year-old male with a history of asthma who presents to the ED complaining of another asthma exacerbation. Patient states that he would have been fine had he had his inhaler, but ran out yesterday. Patient states that this is the same as previous asthma flareups. He otherwise has not had any other recent illness. He is eating and drinking without difficulties. He is urinating normally. Denies drug allergies. No other concerns or complaints. Denies any prolonged immobilization, distance travel, recent surgery/trauma, personal cancer history, hormone use, smoking, or previous DVT/PE. Denies any headache, fever, URI, sore throat, chest pain, palpitations, syncope, cough, abdominal pain, nausea/vomiting/diarrhea, urinary retention, dysuria, hematuria , or rash. - Related Data Allergies/Adverse Reactions: No Known Drug Allergies Allergy (Verified 07/10/18 09:29) peanut Allergy (Verified 07/10/18 09:29) Past Medical History - Social History Smoking Status: Never Smoker Family History: Arthritis, CAD, DM - Mother, Hyperlipidemia, Hypertension, Other - MS mother Pulmonary Medical History: Reports: Hx Asthma Renal/ Medical History: Denies: Hx Peritoneal Dialysis Past Surgical History: Reports: Hx Adenoidectomy, Hx Tonsillectomy - ADENOIDS - Immunizations Immunizations up to date: No Hx Diphtheria, Pertussis, Tetanus Vaccination: No Review of Systems - Review of Systems -: Yes All other systems reviewed and negative Physical Exam - Vital signs Vitals: Temp Pulse Resp BP Pulse Ox 97.8 F 87 15 129/80 H 98 08/03/18 08:26 08/03/18 08:26 08/03/18 08:26 08/03/18 08:26 08/03/18 08:26 - Notes Notes: PHYSICAL EXAMINATION: GENERAL: Well-appearing, well-nourished and in no acute distress. A&Ox4. Answers questions appropriately. HEAD: Atraumatic, normocephalic. EYES: Pupils equal round and reactive to light, extraocular movements intact, sclera anicteric, conjunctiva are normal. ENT: Nares patent and without discharge. oropharynx clear without exudates. No tonsilar hypertrophy or erythema. Moist mucous membranes. NECK: Normal range of motion, supple without lymphadenopathy LUNGS: wheezing b/l. No rales. HEART: Regular rate and rhythm without murmurs, rubs, gallops. ABDOMEN: Soft, nontender, nondistended abdomen. No guarding, no rebound. No masses appreciated. Normal bowel sounds present. No CVA tenderness bilaterally. Musculoskeletal: FROM to passive/active. Strength 5+/5. Orin neg. No asymmetry to LE's. Extremities: No cyanosis, clubbing, or edema b/l. Peripheral pulses 2+. Capillary refill less than 3 seconds. NEUROLOGICAL: Normal speech, normal gait. PSYCH: Normal mood, normal affect. SKIN: Warm, Dry, normal turgor, no rashes or lesions noted. Course - Re-evaluation Re-evalutation: 08/03/18 11:02 Patient is an afebrile, well-hydrated, 23-year-old male who per to the ED with acute asthma exacerbation. Vitals are acceptable without significant tachycardia, tachypnea, or hypoxia. PE is otherwise unremarkable. Patient was given Solu-Medrol as well as a DuoNeb which cleared up the wheezing. Patient's lungs are now clear to auscultation bilaterally and he is feeling much better. No further labs or imaging warranted at this time. Patient is nontoxic- appearing and is tolerating p.o. without difficulty. Low suspicion for any ACS , PE, pneumothorax, pericarditis, dissection, respiratory compromise, severe dehydration, sepsis, meningitis, or other systemic emergent condition at this time. Patient is aware that this condition can change from initial presentation and he needs to monitor symptoms closely and seek medical attention for any acute changes. Rx for an albuterol inhaler and pred taper. Recommend conservative measures for symptoms. Recheck with your PCM in 3-5 days. Return to the ED with any worsening/concerning symptoms otherwise as reviewed in discharge. Patient is in agreement. - Vital Signs Vital signs: Temp Pulse Resp BP Pulse Ox 97.8 F 87 15 129/80 H 98 08/03/18 08:26 08/03/18 08:26 08/03/18 08:26 08/03/18 08:26 08/03/18 08:26 Discharge - Discharge Clinical Impression: Acute asthma exacerbation Qualifiers: Asthma severity: mild Asthma persistence: intermittent Qualified Code(s): J45.21 - Mild intermittent asthma with (acute) exacerbation Condition: Stable Disposition: HOME, SELF-CARE Instructions: Asthma ([facility]) Additional Instructions: Maintain adequate fluid intake Take meds as directed and use inhaler regularly tylenol/ibuprofen as needed over the counter cold medication as needed for symptoms Humidified air may help Wash your hands regularly Wear a mask when coughing F/u: with your PCM in 3-5 days for a recheck Return to the ED with any fever, worsening pain, chest pain, palpitations, syncope, worsening SHIPMAN, neck pain/stiffness, shortness of breath, wheezing, drooling, trouble swallowing/breathing, abdominal pain, n/v/d, rash, or worsening/concerning symptoms otherwise. Prescriptions: Albuterol Sulfate [Proair HFA Inhalation Aerosol 8.5 gm MDI] 2 puff IH Q4H PRN # 1 mdi PRN Reason: Prednisone [Deltasone 10 mg Tablet] 10 mg PO DAILY #18 tablet Forms: Elevated Blood Pressure Referrals: RADHA AGUILA MD [Primary Care Provider] - Follow up in 3-5 days
[2018-08-03 11:23] VITALS: BP 122/83
== END 2018-08-03 11:22 | disposition home or self-care (01) ==
LOC: ER 08:23
DX: J45.21 Mild intermittent asthma with (acute) exacerbation (principal); R06.02 Shortness of breath
CPT/HCPCS: 94640; 99284; 96372; J2930; J7620

== ENCOUNTER 2018-09-06 09:10 | Emergency (ER) | payer BC ==
[2018-09-06] MEDS ORDERED: IPRATROPIUM/ALBUTEROL 0.5-2.5 MG/3 ML AMPUL NEB ONE (09:30)
[2018-09-06] MEDS ORDERED: PREDNISONE 20 MG TABLET PO ONE (09:30)
[2018-09-06] MEDS ORDERED: ALBUTEROL SULFATE 0.083% NEB 2.5 MG/3 ML AMPUL NEB ONE (09:30)
--- NOTE | 2018-09-06 09:36 | ER Document Report ---
ED General - General Chief Complaint: Asthma Exacerbation Stated Complaint: DIFFICULTY BREATHING Time Seen by Provider: 09/06/18 09:28 TRAVEL OUTSIDE OF THE [place] IN LAST 30 DAYS: No - HPI Patient complains to provider of: Short of breath Notes: Patient with a history of asthma since childhood coming in today for shortness of breath patient states he is on inhalers at home however is recently ran out short of breath greater than the last 48 hours states no recent hospitalizations states no history of intubations ever. Patient denies any antibiotics denies cough patient denies smoking. Upon my evaluation patient is speaking in complete sentences no signs of any obvious distress. - Related Data Allergies/Adverse Reactions: No Known Drug Allergies Allergy (Verified 09/06/18 09:14) peanut Allergy (Verified 09/06/18 09:14) Past Medical History - Social History Smoking Status: Unknown if Ever Smoked Family History: Arthritis, CAD, DM - Mother, Hyperlipidemia, Hypertension, Other - MS mother Pulmonary Medical History: Reports: Hx Asthma Renal/ Medical History: Denies: Hx Peritoneal Dialysis Past Surgical History: Reports: Hx Adenoidectomy, Hx Tonsillectomy - ADENOIDS - Immunizations Immunizations up to date: No Hx Diphtheria, Pertussis, Tetanus Vaccination: No Review of Systems - Review of Systems Constitutional: No symptoms reported EENT: No symptoms reported Cardiovascular: No symptoms reported Respiratory: Short of breath, Wheezing Gastrointestinal: No symptoms reported Genitourinary: No symptoms reported Male Genitourinary: No symptoms reported Musculoskeletal: No symptoms reported Skin: No symptoms reported Hematologic/Lymphatic: No symptoms reported Neurological/Psychological: No symptoms reported -: Yes All other systems reviewed and negative Physical Exam - Vital signs Vitals: Temp Pulse Resp BP Pulse Ox 97.8 F 78 22 H 142/82 H 97 09/06/18 09:15 09/06/18 09:15 09/06/18 09:15 09/06/18 09:15 09/06/18 09:15 Interpretation: Normal - General General appearance: Appears well, Alert - HEENT Head: Normocephalic, Atraumatic Eyes: Normal Pupils: PERRL - Respiratory Respiratory status: No respiratory distress Chest status: Nontender Breath sounds: Wheezing Chest palpation: Normal - Cardiovascular Rhythm: Regular Heart sounds: Normal auscultation Murmur: No - Abdominal Inspection: Normal Distension: No distension Bowel sounds: Normal Tenderness: Nontender Organomegaly: No organomegaly - Back Back: Normal, Nontender - Extremities General upper extremity: Normal inspection, Nontender, Normal color, Normal ROM, Normal temperature General lower extremity: Normal inspection, Nontender, Normal color, Normal ROM, Normal temperature, Normal weight bearing. No: Orin's sign - Neurological Neuro grossly intact: Yes Cognition: Normal Orientation: AAOx4 Annette Coma Scale Eye Opening: Spontaneous Annette Coma Scale Verbal: Oriented Annette Coma Scale Motor: Obeys Commands [place] Coma Scale Total: 15 Speech: Normal Motor strength normal: LUE, RUE, LLE, RLE Sensory: Normal - Psychological Associated symptoms: Normal affect, Normal mood - Skin Skin Temperature: Warm Skin Moisture: Dry Skin Color: Normal Course - Re-evaluation Re-evalutation: 09/06/18 11:18 Patient symptoms greatly improved after breathing treatments. We will give the patient a inhaler to go home with prescription for inhaler with refills will start patient on prednisone patient was grateful for his care discharged home. - Vital Signs Vital signs: Temp Pulse Resp BP Pulse Ox 97.4 F 72 16 143/90 H 98 09/06/18 10:19 09/06/18 10:19 09/06/18 10:19 09/06/18 10:19 09/06/18 10:19 Discharge - Discharge Clinical Impression: Asthma exacerbation Qualifiers: Asthma severity: unspecified severity Asthma persistence: unspecified Qualified Code(s): J45.901 - Unspecified asthma with (acute) exacerbation Condition: Good Disposition: HOME, SELF-CARE Instructions: Asthma ([facility]), Inhaled Bronchodilators ([facility]), Stop Sm[facility] ([facility]) Additional Instructions: Please follow-up with your primary care physician. Please use the inhaler that we gave you here in ER 2 puffs every 4 hours as needed for shortness of breath. Please take steroids as prescribed. Return to ER if symptoms worsen. Prescriptions: Albuterol Sulfate [Proair HFA Inhalation Aerosol 8.5 gm MDI] 2 puff IH Q4H PRN #1 mdi PRN Reason: Albuterol Sulfate [Proair HFA Inhalation Aerosol 8.5 gm MDI] 2 puff IH Q4H PRN #1 mdi PRN Reason: Prednisone [Deltasone] 60 mg PO DAILY #24 tablet Referrals: RADHA AGUILA MD [Primary Care Provider] - Follow up in 3-5 days
[2018-09-06] MEDS ORDERED: ALBUTEROL SULFATE HFA (90 MCG/PUFF) 8 GM MDI (1 MDI/ER DISP) IH ONE (10:14)
[2018-09-06 10:22] VITALS: BP 143/90
== END 2018-09-06 10:21 | disposition home or self-care (01) ==
LOC: ER 09:10
DX: J45.901 Unspecified asthma with (acute) exacerbation (principal); R06.02 Shortness of breath
CPT/HCPCS: 94640 ×2; 99283; J7512; J3490; J7620

== ENCOUNTER 2018-09-13 11:44 | Emergency (ER) | payer BC ==
[2018-09-13] MEDS ORDERED: DIPHENHYDRAMINE HCL 50 MG/ML VIAL ONE (11:55)
[2018-09-13] MEDS ORDERED: EPINEPHRINE INJ/PF 1 MG/1 ML AMPULE ONE (11:55)
[2018-09-13] MEDS ORDERED: METHYLPREDNISOLONE INJ 125 MG/2 ML SDV ONE (11:55)
[2018-09-13] MEDS ORDERED: FAMOTIDINE INJ/PF 20 MG/2 ML SDV IV ONE ×2 (11:55→12:14)
[2018-09-13] MEDS ORDERED: METHYLPREDNISOLONE INJ 125 MG/2 ML SDV IV ONE (12:14)
[2018-09-13] MEDS ORDERED: DIPHENHYDRAMINE HCL 50 MG/ML VIAL IV ONE (12:14)
--- NOTE | 2018-09-13 12:14 | ER Document Report ---
ED Allergic Reaction - General Chief Complaint: Allergic Reaction Stated Complaint: POSSIBLE ALLERGIC REACTION Time Seen by Provider: 09/13/18 11:56 Mode of Arrival: Ambulatory Information source: Patient Notes: 23-year-old male presents the emergency department with complaints of an allergic reaction. Patient states that he is allergic to nuts. Patient states that the last time he had a but was 10 years ago. He ate a cashew today and immediately began having abdominal pain, throat tightness. Patient did not take any medication prior to arrival. Patient denies any medical problems. He is not on any medications. TRAVEL OUTSIDE OF THE [place] IN LAST 30 DAYS: No - HPI Onset: Just prior to arrival Onset/Duration: Sudden Quality of pain: Achy Severity: Mild Pain Level: Denies Food exposure: Nuts Swelling: Throat Associated symptoms: Lightheaded Similar symptoms previously: Yes Recently seen / treated by doctor: No - Related Data Allergies/Adverse Reactions: No Known Drug Allergies Allergy (Verified 09/06/18 09:14) peanut Allergy (Verified 09/06/18 09:14) Past Medical History - General Information source: Patient - Social History Smoking Status: Never Smoker Family History: Arthritis, CAD, DM - Mother, Hyperlipidemia, Hypertension, Other - MS mother Patient has suicidal ideation: No Patient has homicidal ideation: No Pulmonary Medical History: Reports: Hx Asthma Renal/ Medical History: Denies: Hx Peritoneal Dialysis Past Surgical History: Reports: Hx Adenoidectomy, Hx Tonsillectomy - ADENOIDS - Immunizations Immunizations up to date: No Hx Diphtheria, Pertussis, Tetanus Vaccination: No Review of Systems - Review of Systems Constitutional: No symptoms reported EENT: No symptoms reported Cardiovascular: No symptoms reported Respiratory: No symptoms reported Gastrointestinal: No symptoms reported Genitourinary: No symptoms reported Male Genitourinary: No symptoms reported Musculoskeletal: No symptoms reported Skin: No symptoms reported Hematologic/Lymphatic: No symptoms reported Neurological/Psychological: No symptoms reported -: Yes All other systems reviewed and negative Physical Exam - Vital signs Vitals: Temp Resp BP Pulse Ox 97.6 F 13 137/99 H 100 09/13/18 12:02 09/13/18 12:02 09/13/18 12:02 09/13/18 12:02 - Notes Notes: PHYSICAL EXAMINATION: GENERAL: Well-appearing, well-nourished and in no acute distress. HEAD: Atraumatic, normocephalic. EYES: Pupils equal round and reactive to light, extraocular movements intact, sclera anicteric, conjunctiva are normal. ENT: Nares patent, oropharynx clear without exudates. Moist mucous membranes. NECK: Normal range of motion, supple without lymphadenopathy LUNGS: Breath sounds clear to auscultation bilaterally and equal. No wheezes rales or rhonchi. HEART: Regular rate and rhythm without murmurs ABDOMEN: Soft, nontender, nondistended abdomen. No guarding, no rebound. No masses appreciated. Musculoskeletal: Normal range of motion, no pitting or edema. No cyanosis. NEUROLOGICAL: Cranial nerves grossly intact. Normal speech, normal gait. Normal sensory, motor exams PSYCH: Normal mood, normal affect. SKIN: Warm, Dry, normal turgor, no rashes or lesions noted. Course - Re-evaluation Re-evalutation: 09/13/18 15:36 Patient given Solu-Medrol, Pepcid, Benadryl, epinephrine, fluids. Patient monitored. Patient states that his symptoms have completely resolved. He denies chest pain, shortness of breath, throat tightness, throat swelling. He feels comfortable with discharge home. Instructed the patient to avoid all foods containing nuts. I will give him a prescription for an EpiPen. I told him to use it if he begins having any throat tightness or swelling. I instructed the patient to follow-up for reevaluation with his primary care physician this week and to return to the emergency department if he has any worsening symptoms. - Vital Signs Vital signs: Temp Pulse Resp BP Pulse Ox 97.6 F 16 104/66 97 09/13/18 12:02 09/13/18 14:01 09/13/18 14:01 09/13/18 14:01 Discharge - Discharge Clinical Impression: Anaphylactic reaction Qualifiers: Encounter type: initial encounter Qualified Code(s): T78.2XXA - Anaphylactic shock, unspecified, initial encounter Condition: Good Disposition: HOME, SELF-CARE Instructions: Acute Allergic Reaction ([facility]) Additional Instructions: Avoid all foods containing nuts. Fill the EpiPen prescribed and keep it on you at all times. Administer the Epipen if you begin having throat tightness/swelling from possible allergic reaction. Follow-up with your primary care physician this week for reevaluation. Return to the emergency department if he began having any worsening symptoms. Prescriptions: Epinephrine 0.3 mg IJ PRN PRN #1 auto.injct PRN Reason: Referrals: RADHA AGUILA MD [Primary Care Provider] - Follow up as needed
[2018-09-13] MEDS ORDERED: EPINEPHRINE INJ/PF 1 MG/1 ML AMPULE IM ONE (12:15)
[2018-09-13] MEDS ORDERED: NORMAL SALINE 1000 ML 1,000 ML IV ONE (12:50)
[2018-09-13 15:47] VITALS: BP 121/72
== END 2018-09-13 15:47 | disposition home or self-care (01) ==
LOC: ER 11:44
DX: T78.05XA Anaphylactic reaction due to tree nuts and seeds, initial encounter (principal); R10.9 Unspecified abdominal pain; R09.89 Other specified symptoms and signs involving the circulatory and respiratory systems; R42 Dizziness and giddiness; J45.909 Unspecified asthma, uncomplicated
CPT/HCPCS: 99284; 96372; 96361; 96374; 96375; J1200; J0171; J2930; J7030; S0028

== ENCOUNTER 2018-10-04 09:06 | Emergency (ER) | payer BC ==
[2018-10-04 09:20] VITALS: BP 109/74
[2018-10-04] MEDS ORDERED: IPRATROPIUM/ALBUTEROL 0.5-2.5 MG/3 ML AMPUL NEB ONE (09:28)
[2018-10-04] MEDS ORDERED: METHYLPREDNISOLONE INJ 125 MG/2 ML SDV IM ONE (09:28)
--- NOTE | 2018-10-04 09:41 | ER Document Report ---
HPI - HPI Time Seen by Provider: 10/04/18 09:23 Pain Level: 5 Notes: Patient is a 23-year-old male with a history of asthma who presents to the ED complaining of an acute asthma exacerbation. That began this morning patient states that he has used up his inhaler which is normal for him during the season. Patient states that this is the same as previous asthma flareups. He otherwise has not had any other recent illness. He is eating and drinking without difficulties. He is urinating normally. Denies drug allergies. No other concerns or complaints. Denies any prolonged immobilization, distance travel, recent surgery/trauma, personal cancer history, hormone use, smoking, or previous DVT/PE. Denies any headache, fever, URI, sore throat, chest pain, palpitations, syncope, cough, abdominal pain, nausea/vomiting/diarrhea, urinary retention, dysuria, hematuria, or rash. - ROS Systems Reviewed and Negative: Yes All other systems reviewed and negative - REPRODUCTIVE Reproductive: DENIES: : Past Medical History - Social History Smoking Status: Never Smoker Family History: Arthritis, CAD, DM - Mother, Hyperlipidemia, Hypertension, Other - MS mother Patient has suicidal ideation: No Patient has homicidal ideation: No Pulmonary Medical History: Reports: Hx Asthma Renal/ Medical History: Denies: Hx Peritoneal Dialysis Past Surgical History: Reports: Hx Adenoidectomy, Hx Tonsillectomy - ADENOIDS - Immunizations Immunizations up to date: No Hx Diphtheria, Pertussis, Tetanus Vaccination: No Vertical Provider Document - CONSTITUTIONAL Agree With Documented VS: Yes Notes: PHYSICAL EXAMINATION: GENERAL: Well-appearing, well-nourished and in no acute distress. A&Ox4. Answers questions appropriately. HEAD: Atraumatic, normocephalic. EYES: Pupils equal round and reactive to light, extraocular movements intact, sclera anicteric, conjunctiva are normal. ENT: Nares patent and without discharge. oropharynx clear without exudates. No tonsilar hypertrophy or erythema. Moist mucous membranes. NECK: Normal range of motion, supple without lymphadenopathy LUNGS: wheezing b/l. No rales. HEART: Regular rate and rhythm without murmurs, rubs, gallops. ABDOMEN: Soft, nontender, nondistended abdomen. No guarding, no rebound. No masses appreciated. Normal bowel sounds present. No CVA tenderness bilaterally. Musculoskeletal: FROM to passive/active. Strength 5+/5. Orin neg. No asymmetry to LE's. Extremities: No cyanosis, clubbing, or edema b/l. Peripheral pulses 2+. Capillary refill less than 3 seconds. NEUROLOGICAL: Normal speech, normal gait. PSYCH: Normal mood, normal affect. SKIN: Warm, Dry, normal turgor, no rashes or lesions noted. - INFECTION CONTROL TRAVEL OUTSIDE OF THE [place] IN LAST 30 DAYS: No Course - Re-evaluation Re-evalutation: 10/04/18 09:55 Patient is an afebrile, well-hydrated, 23-year-old male who per to the ED with acute asthma exacerbation. Vitals are acceptable without significant tachycardia, tachypnea, or hypoxia. PE is otherwise unremarkable. Patient was given Solu-Medrol as well as a DuoNeb which cleared up the wheezing. Patient's lungs are now clear to auscultation bilaterally and he is feeling much better. No further labs or imaging warranted at this time. Patient is nontoxic- appearing and is tolerating p.o. without difficulty. Low suspicion for any ACS, PE, pneumothorax, pericarditis, dissection, respiratory compromise, severe dehydration, sepsis, meningitis, or other systemic emergent condition at this time. Patient is aware that this condition can change from initial presentation and he needs to monitor symptoms closely and seek medical attention for any acute changes. Rx for an albuterol inhaler and pred taper. Recommend conservative measures for symptoms. Recheck with your PCM in 3-5 days. Return to the ED with any worsening/concerning symptoms otherwise as reviewed in discharge. Patient is in agreement. - Vital Signs Vital signs: Temp Pulse Resp BP Pulse Ox 97.6 F 80 16 109/74 94 10/04/18 09:19 10/04/18 09:19 10/04/18 09:19 10/04/18 09:19 10/04/18 09:19 Discharge - Discharge Clinical Impression: Asthma exacerbation Qualifiers: Asthma severity: mild Asthma persistence: intermittent Qualified Code(s): J45.21 - Mild intermittent asthma with (acute) exacerbation Condition: Stable Disposition: HOME, SELF-CARE Instructions: Asthma ([facility]) Additional Instructions: Maintain adequate fluid intake Take meds as directed and use inhaler regularly tylenol/ibuprofen as needed over the counter cold medication as needed for symptoms Humidified air may help Wash your hands regularly Wear a mask when coughing F/u: with your PCM in 3-5 days for a recheck Return to the ED with any fever, worsening pain, chest pain, palpitations, syncope, worsening SHIPMAN, neck pain/stiffness, shortness of breath, wheezing, drooling, trouble swallowing/breathing, abdominal pain, n/v/d, rash, or worsening/concerning symptoms otherwise. Prescriptions: Albuterol Sulfate [Proair HFA Inhalation Aerosol 8.5 gm MDI] 2 puff IH Q4H PRN #1 mdi PRN Reason: Prednisone [Deltasone 10 mg Tablet] 10 mg PO DAILY #18 tablet Referrals: RADHA AGUILA MD [Primary Care Provider] - Follow up as needed
== END 2018-10-04 10:02 | disposition home or self-care (01) ==
LOC: ER 09:06
DX: J45.21 Mild intermittent asthma with (acute) exacerbation (principal)
CPT/HCPCS: 94640; 99284; 96372; J2930; J7620

== ENCOUNTER 2018-10-31 09:13 | Emergency (ER) | payer BC ==
[2018-10-31 09:18] VITALS: BP 125/85
[2018-10-31] MEDS ORDERED: ALBUTEROL SULFATE HFA (90 MCG/PUFF) 8 GM MDI (1 MDI/ER DISP) IH PRN (09:36)
[2018-10-31] MEDS ORDERED: PREDNISONE 20 MG TABLET PO ONE (09:36)
[2018-10-31] MEDS ORDERED: IPRATROPIUM/ALBUTEROL 0.5-2.5 MG/3 ML AMPUL NEB ONE (09:36)
--- NOTE | 2018-10-31 09:43 | ER Document Report ---
ED Medical Screen (RME) - General Chief Complaint: Asthma Exacerbation Stated Complaint: CONGESTION Time Seen by Provider: 10/31/18 09:36 Primary Care Provider: RADHA AGUILA MD [Primary Care Provider] - Follow up as needed Mode of Arrival: Ambulatory Information source: Patient Notes: This is a 23-year-old man with a history of asthma presents emergency room with shortness of breath and wheezing for the last few days. Patient states he normally gets this with the weather changes. He denies fever productive cough. TRAVEL OUTSIDE OF THE [place] IN LAST 30 DAYS: No - HPI Onset: Last week Onset/Duration: Gradual Quality of pain: No pain Severity: None Pain Level: Denies Associated Symptoms: Cough (nonproductive), Shortness of breath. denies: Fever Exacerbated by: Movement Relieved by: Remaining still Similar symptoms previously: Yes Recently seen / treated by doctor: No - Related Data Smoking: Non-smoker Frequency of alcohol use: None Drug Abuse: None Allergies/Adverse Reactions: No Known Drug Allergies Allergy (Verified 10/31/18 09:15) peanut Allergy (Verified 10/31/18 09:15) Past Medical History - General Information source: Patient - Social History Cigarette use (# per day): No Chew tobacco use (# tins/day): No Frequency of alcohol use: None Drug Abuse: None Lives with: Spouse/Significant other Family history: None - Past Medical History Cardiac Medical History: Reports: None Pulmonary Medical History: Reports: Hx Asthma Renal/ Medical History: Reports: None. Denies: Hx Peritoneal Dialysis Malignancy Medical History: Reports None GI Medical History: Reports: None Musculoskeltal Medical History: Reports None Past Surgical History: Reports: Hx Adenoidectomy, Hx Tonsillectomy - ADENOIDS - Immunizations Immunizations up to date: No Hx Diphtheria, Pertussis, Tetanus Vaccination: No Review of Systems - Review of Systems Constitutional: denies: Chills, Fever EENT: No symptoms reported Cardiovascular: denies: Chest pain, Palpitations, Heart racing Respiratory: Cough, Short of breath, Wheezing Gastrointestinal: No symptoms reported Genitourinary: No symptoms reported Male Genitourinary: No symptoms reported Musculoskeletal: No symptoms reported Skin: No symptoms reported Hematologic/Lymphatic: No symptoms reported Neurological/Psychological: No symptoms reported Physical Exam - Vital signs Vitals: Temp Pulse Resp BP Pulse Ox 97.9 F 88 18 125/85 99 10/31/18 09:17 10/31/18 09:17 10/31/18 09:17 10/31/18 09:17 10/31/18 09:17 Notes: Physical exam: GENERAL: 23-year-old man, alert and oriented x3, no acute distress HEAD: Atraumatic, normocephalic. EYES: Pupils equal round and reactive to light, extraocular movements intact, sclera anicteric, conjunctiva are normal. ENT: Moist mucous membranes. NECK: Normal range of motion, supple without obvious mass or JVD. LUNGS: Bilateral wheezing HEART: Regular rate and rhythm without murmurs, rubs or gallops. ABDOMEN: Soft, normoactive bowel sounds. EXTREMITIES: Normal range of motion, no pitting or edema. No clubbing or cyanosis. NEUROLOGICAL: Alert and oriented x3, normal speech, moving all extremities. Gait normal. PSYCH: Normal mood, normal affect. SKIN: Warm, Dry, normal turgor, no rashes or lesions noted. Course - Re-evaluation Re-evalutation: 10/31/18 10:18 Patient received nebulizer and prednisone in the emergency room. Repeat exam shows clear lungs. Patient states he feels much better. - Vital Signs Vital signs: Temp Pulse Resp BP Pulse Ox 97.9 F 88 18 125/85 99 10/31/18 09:17 10/31/18 09:17 10/31/18 09:17 10/31/18 09:17 10/31/18 09:17 Doctor's Discharge - Discharge Clinical Impression: Asthma exacerbation Condition: Stable Disposition: HOME, SELF-CARE Instructions: Asthma ([facility]) Additional Instructions: Recommendations: Take the inhaler as needed Take the Singulair as prescribed. Take the prednisone as prescribed. Follow-up with your primary care doctor Return to the emergency room for worsening shortness of breath. Prescriptions: Montelukast Sodium [Singulair 10 mg Tablet] 10 mg PO QHS #30 tablet Prednisone [Deltasone 20 mg Tablet] 3 tab PO DAILY 5 Days tablet Forms: Return to Work Referrals: RADHA AGUILA MD [Primary Care Provider] - Follow up as needed
== END 2018-10-31 10:16 | disposition home or self-care (01) ==
LOC: ER 09:13
DX: J45.901 Unspecified asthma with (acute) exacerbation (principal); R06.02 Shortness of breath; R05 Cough
CPT/HCPCS: 94640; 99284; J7512; J3490; J7620

== ENCOUNTER 2018-11-11 14:10 | Emergency (ER) | payer BC ==
--- NOTE | 2018-11-11 15:09 | ER Document Report ---
ED General - General Chief Complaint: Breathing Difficulty Stated Complaint: DIFFICULTY BREATHING Time Seen by Provider: 11/11/18 15:01 Primary Care Provider: RADHA AGUILA MD [Primary Care Provider] - Follow up as needed TRAVEL OUTSIDE OF THE [place] IN LAST 30 DAYS: No - HPI Notes: Patient is a 23-year-old male that presents to the emergency department for chief complaint of asthma exacerbation. Patient reports history of asthma and eczema. He has been using his albuterol inhaler 2 puffs 3-4 times daily. He states it does give him relief but he ran out of his albuterol yesterday. Patient states that he is here for an albuterol refill. He reports mild shortness of breath and wheezing. He reports history of allergy to animals and is currently taking daily antihistamines. He denies any associated fever, chills, chest pain, nausea, vomiting. He denies ever needing oxygen. Past Medical History: Asthma, eczema Past Surgical History: Tonsillectomy Social History: Denies drugs alcohol and tobacco Family History: Reviewed and noncontributory for presenting illness Allergies: Reviewed, see documented allergy list. REVIEW OF SYSTEMS: CONSTITUTIONAL : No fever No chills No diaphoresis No recent illness EENT: No vision changes No congestion No sore throat CARDIOVASCULAR: No chest pain No palpitations RESPIRATORY: shortness of breath No cough GASTROINTESTINAL: No abdominal pain No nausea No vomiting No diarrhea GENITOURINARY: No dysuria No hematuria No difficulty urinating MUSCULOSKELETAL: No back pain No leg pain No arm pain SKIN: No rashes No lesions LYMPHATIC: No swollen, enlarged glands. NEUROLOGICAL: No lightheadedness No headache No weakness No paresthesias PSYCHIATRIC: No anxiety No depression PHYSICAL EXAMINATION: Vital signs reviewed, nursing noted reviewed. GENERAL: Well-appearing, well-nourished and in no acute distress. HEAD: Atraumatic, normocephalic. EYES: Eyes appear normal, extraocular movements intact, sclera anicteric, conjunctiva are normal. ENT: nares patent, oropharynx clear without exudates. Moist mucous membranes. NECK: Normal range of motion, supple without lymphadenopathy LUNGS: Bilateral wheezing, no tachypnea or accessory muscle use. No retractions. No respiratory distress HEART: Regular rate and rhythm without murmurs ABDOMEN: Soft, nontender, normoactive bowel sounds. No rebound, guarding, or rigidity. No masses appreciated. EXTREMITIES: Nontender, good range of motion, no pitting or edema. NEUROLOGICAL: No focal neurological deficits. Moves all extremities spontaneously Motor and sensory grossly intact on exam. PSYCH: Normal mood, normal affect. SKIN: Warm, Dry, normal turgor, no rashes or lesions noted on exposed skin - Related Data Allergies/Adverse Reactions: peanut Allergy (Verified 11/11/18 14:15) Past Medical History - Social History Smoking Status: Never Smoker Chew tobacco use (# tins/day): No Frequency of alcohol use: None Drug Abuse: None Family History: Arthritis, CAD, DM - Mother, Hyperlipidemia, Hypertension, Other - MS mother Patient has suicidal ideation: No Patient has homicidal ideation: No Pulmonary Medical History: Reports: Hx Asthma Renal/ Medical History: Denies: Hx Peritoneal Dialysis Past Surgical History: Reports: Hx Adenoidectomy, Hx Tonsillectomy - ADENOIDS - Immunizations Immunizations up to date: No Hx Diphtheria, Pertussis, Tetanus Vaccination: No Physical Exam - Vital signs Vitals: Temp Pulse Resp BP Pulse Ox 97.7 F 60 18 136/78 H 99 11/11/18 14:18 11/11/18 14:18 11/11/18 14:18 11/11/18 14:18 11/11/18 14:18 Course - Re-evaluation Re-evalutation: 11/11/18 15:08 Vitals reviewed. Nursing notes reviewed. Patient afebrile and nontoxic. He is in no acute respiratory distress with a normal O2 level on room air. Patient will be given albuterol and prednisone for acute asthma exacerbation. He has an appointment with his PCP on 11/17/18 which he is encouraged to keep for follow- up. He is stable at discharge. - Vital Signs Vital signs: Temp Pulse Resp BP Pulse Ox 97.7 F 60 18 136/78 H 99 11/11/18 14:18 11/11/18 14:18 11/11/18 14:18 11/11/18 14:18 11/11/18 14:18 Discharge - Discharge Clinical Impression: Asthma Qualifiers: Asthma severity: mild Asthma persistence: intermittent Asthma complication type: with acute exacerbation Qualified Code(s): J45.21 - Mild intermittent asthma with (acute) exacerbation Condition: Stable Disposition: HOME, SELF-CARE Instructions: Asthma ([facility]) Additional Instructions: Please return to the emergency department if you have any worsening, or concern of your symptoms. Please return to the emergency department if you develop chest pain, difficulty breathing, severe abdominal pain, or ongoing vomiting. Please follow-up with your primary care physician in 2-3 days and any other recommended physicians. If prescribed, take all medications as directed. If you have any questions or concerns do not hesitate to return the emergency department for evaluation. Prescriptions: Albuterol Sulfate [Proair HFA Inhalation Aerosol 8.5 gm MDI] 2 puff IH Q4H PRN #1 mdi PRN Reason: Prednisone [Deltasone 20 mg Tablet] 2 tab PO DAILY 5 Days tablet Forms: Return to Work Referrals: RADHA AGUILA MD [Primary Care Provider] - 11/17/18
[2018-11-11 15:15] VITALS: BP 118/79
== END 2018-11-11 15:13 | disposition home or self-care (01) ==
LOC: ER 14:10
DX: J45.21 Mild intermittent asthma with (acute) exacerbation (principal); Z79.899 Other long term (current) drug therapy; Z91.048 Other nonmedicinal substance allergy status
CPT/HCPCS: 99281

== ENCOUNTER 2019-01-25 08:24 | Emergency (ER) | payer BC ==
[2019-01-25] MEDS ORDERED: PREDNISONE 20 MG TABLET PO ONE (08:59)
[2019-01-25] MEDS ORDERED: IPRATROPIUM/ALBUTEROL 0.5-2.5 MG/3 ML AMPUL NEB ONE (08:59)
[2019-01-25] MEDS: ALBUTEROL SULFATE 0.083% NEB 2.5 MG/3 ML AMPUL NEB SCH ×2 (09:05→09:51)
--- NOTE | 2019-01-25 09:30 | ER Document Report ---
ED Medical Screen (RME) - General Chief Complaint: Asthma Exacerbation Stated Complaint: ASTHMA Time Seen by Provider: 01/25/19 09:28 Primary Care Provider: RADHA AGUILA MD [Primary Care Provider] - Follow up as needed Mode of Arrival: Ambulatory Information source: Patient Notes: Patient presents complaining of asthma exacerbation. Patient out of his medications at home. Patient denies fever. I have greeted and performed a rapid initial assessment of this patient. A comprehensive ED assessment and evaluation of the patient, analysis of test results and completion of the medical decision making process will be conducted by additional ED providers. TRAVEL OUTSIDE OF THE [place] IN LAST 30 DAYS: No - Related Data Allergies/Adverse Reactions: peanut Allergy (Verified 11/11/18 14:15) Past Medical History - Social History Family history: None Pulmonary Medical History: Reports: Hx Asthma Renal/ Medical History: Denies: Hx Peritoneal Dialysis Past Surgical History: Reports: Hx Adenoidectomy, Hx Tonsillectomy - ADENOIDS - Immunizations Immunizations up to date: No Hx Diphtheria, Pertussis, Tetanus Vaccination: No Physical Exam - Vital signs Vitals: Temp Pulse Resp BP Pulse Ox 97.9 F 56 L 28 H 114/72 98 01/25/19 08:39 01/25/19 08:39 01/25/19 08:39 01/25/19 08:39 01/25/19 08:39 - Respiratory Respiratory status: No respiratory distress Breath sounds: Nonproductive cough, Wheezing Course - Vital Signs Vital signs: Temp Pulse Resp BP Pulse Ox 97.9 F 56 L 28 H 114/72 98 01/25/19 08:39 01/25/19 08:39 01/25/19 08:39 01/25/19 08:39 01/25/19 08:39 Doctor's Discharge - Discharge Referrals: RADHA AGUILA MD [Primary Care Provider] - Follow up as needed
--- NOTE | 2019-01-25 10:41 | ER Document Report ---
HPI - HPI Patient complains to provider of: asthma Time Seen by Provider: 01/25/19 09:28 Onset: This morning Onset/Duration: Gradual Pain Level: 4 Context: Patient presents complaining of difficulty breathing that started an hour prior to arrival. Patient has a history of asthma and ran out of his inhaler. Associated Symptoms: Shortness of breath. denies: Fever, Headache Exacerbated by: Denies Relieved by: Denies Similar symptoms previously: Yes Recently seen / treated by doctor: No - ROS ROS below otherwise negative: Yes Systems Reviewed and Negative: Yes All other systems reviewed and negative - CONSTITUTIONAL Constitutional: DENIES: Fever, Chills - EENT EENT: DENIES: Sore Throat - CARDIOVASCULAR Cardiovascular: DENIES: Chest pain - RESPIRATORY Respiratory: REPORTS: Trouble Breathing, Coughing - GASTROINTESTINAL Gastrointestinal: DENIES: Patient vomiting, Diarrhea - MUSCULOSKELETAL Musculoskeletal: DENIES: Back Pain - DERM Skin Color: Normal Skin Problems: None Past Medical History - General Information source: Patient - Social History Smoking Status: Never Smoker Chew tobacco use (# tins/day): No Frequency of alcohol use: None Drug Abuse: None Occupation: Construction Family History: Arthritis, CAD, DM - Mother, Hyperlipidemia, Hypertension, Other - MS mother Patient has suicidal ideation: No Patient has homicidal ideation: No Pulmonary Medical History: Reports: Hx Asthma Renal/ Medical History: Denies: Hx Peritoneal Dialysis Past Surgical History: Reports: Hx Adenoidectomy, Hx Tonsillectomy - ADENOIDS - Immunizations Immunizations up to date: No Hx Diphtheria, Pertussis, Tetanus Vaccination: No Vertical Provider Document - CONSTITUTIONAL Agree With Documented VS: Yes Exam Limitations: No Limitations General Appearance: WD/WN, No Apparent Distress - INFECTION CONTROL TRAVEL OUTSIDE OF THE [place] IN LAST 30 DAYS: No - HEENT HEENT: Atraumatic, Normocephalic - NECK Neck: Normal Inspection, Supple. negative: Lymphadenopathy-Left, Lymphadenopathy-Right - RESPIRATORY Respiratory: No Respiratory Distress, Wheezing - CARDIOVASCULAR Cardiovascular: Regular Rate, Regular Rhythm - GI/ABDOMEN Gastrointestinal: Abdomen Soft - BACK Back: Normal Inspection - MUSCULOSKELETAL/EXTREMETIES Musculoskeletal/Extremeties: ELADIO SOTO - NEURO Level of Consciousness: Awake, Alert, Appropriate Motor/Sensory: No Motor Deficit - DERM Integumentary: Warm, Dry, No Rash Course - Re-evaluation Re-evalutation: 01/25/19 10:40 Breath sounds clear bilaterally, patient in no acute distress. Patient requesting discharge at this time. - Vital Signs Vital signs: Temp Pulse Resp BP Pulse Ox 97.9 F 56 L 28 H 114/72 98 01/25/19 08:39 01/25/19 08:39 01/25/19 08:39 01/25/19 08:39 01/25/19 08:39 Discharge - Discharge Clinical Impression: Asthma exacerbation Qualifiers: Asthma severity: unspecified severity Asthma persistence: unspecified Qualified Code(s): J45.901 - Unspecified asthma with (acute) exacerbation Condition: Stable Disposition: HOME, SELF-CARE Instructions: Asthma ([facility]), Inhaled Bronchodilators ([facility]), Steroid Medication Additional Instructions: Return immediately for any new or worsening symptoms Followup with your primary care provider, call tomorrow to make a followup appointment Prescriptions: Albuterol Sulfate [Proair Hfa Inhalation Aerosol 8.5 gm Mdi] 2 puff IH Q4 PRN #1 mdi PRN Reason: Inhaler,Assist Device,Accesory [Optichamber] 1 each MC Q4 PRN #1 each PRN Reason: Prednisone [Deltasone 20 mg Tablet] 3 tab PO DAILY 4 Days tablet Forms: Return to Work Referrals: RADHA AGUILA MD [Primary Care Provider] - Follow up as needed
[2019-01-25 10:43] VITALS: BP 131/85
== END 2019-01-25 10:45 | disposition home or self-care (01) ==
LOC: ER 08:24
DX: J45.901 Unspecified asthma with (acute) exacerbation (principal); T48.906A Underdosing of unspecified agents primarily acting on the respiratory system, initial encounter; Z91.128 Patient's intentional underdosing of medication regimen for other reason; Z91.14 Patient's other noncompliance with medication regimen; R05 Cough; R06.02 Shortness of breath
CPT/HCPCS: 94640 ×2; 99284; J7512; J7620

== ENCOUNTER 2019-03-01 09:57 | Emergency (ER) | payer BC ==
[2019-03-01 10:18] VITALS: BP 126/68
[2019-03-01] MEDS ORDERED: IPRATROPIUM/ALBUTEROL 0.5-2.5 MG/3 ML AMPUL NEB ONE (10:20)
[2019-03-01] MEDS ORDERED: PREDNISONE 20 MG TABLET PO ONE (10:20)
--- NOTE | 2019-03-01 10:24 | ER Document Report ---
Addendum entered and electronically signed by TATYANA PARRA NP 03/01/19 11:00: Discharge - Discharge Clinical Impression: Wheeze Asthma Qualifiers: Asthma severity: mild Asthma persistence: unspecified Asthma complication type: uncomplicated Qualified Code(s): J45.909 - Unspecified asthma, uncomplicated Condition: Stable Disposition: HOME, SELF-CARE Instructions: Asthma ([facility]), Inhaled Bronchodilators ([facility]), Steroid Medication Additional Instructions: *You have been evaluated for a wheeze, asthma *Take medication as prescribed, use the inhaler as indicated *Increase fluids *Monitor your temperature, take Tylenol as indicated *Follow up with a primary care provider within 5 days *Return to ED for increasing fever, cough, worsening condition, changes, needs, trouble breathing, concerns Monitor your blood pressure. Your blood pressure was elevated today. This may be because you were anxious, in pain or because you need medication. It is important to follow up with your primary care provider for full evaluation. Prescriptions: Albuterol Sulfate [Albuterol Sulfate Hfa] 8.5 gm IH PRN PRN #1 [id number] PRN Reason: Prednisone [Deltasone 10 mg Tablet] 10 mg PO ASDIR PRN #15 tablet PRN Reason: Forms: Elevated Blood Pressure Referrals: RADHA AGUILA MD [Primary Care Provider] - Follow up in 3-5 days Original Note: HPI - HPI Patient complains to provider of: asthma Time Seen by Provider: 03/01/19 10:18 Onset: This morning Onset/Duration: Sudden Quality of pain: No pain Pain Level: 5 Context: Patient presents to the emergency department with reports of asthma attack that started this morning. Reports he had asthma his whole life. Does not have an inhaler or neb treatments. Reports he woke up this morning wheezing. Denies fever vomiting diarrhea. Patient is talking in clear voice no shortness of breath respiratory rate even unlabored. No retractions. - REPRODUCTIVE Reproductive: DENIES: : Past Medical History - General Information source: Patient - Social History Smoking Status: Former Smoker Cigarette use (# per day): No Frequency of alcohol use: None Drug Abuse: None Occupation: Construction Family History: Arthritis, CAD, DM - Mother, Hyperlipidemia, Hypertension, Other - MS mother Patient has suicidal ideation: No Patient has homicidal ideation: No Pulmonary Medical History: Reports: Hx Asthma Renal/ Medical History: Denies: Hx Peritoneal Dialysis Past Surgical History: Reports: Hx Adenoidectomy, Hx Tonsillectomy - ADENOIDS - Immunizations Immunizations up to date: No Hx Diphtheria, Pertussis, Tetanus Vaccination: No Vertical Provider Document - CONSTITUTIONAL Agree With Documented VS: Yes Exam Limitations: No Limitations General Appearance: WD/WN, No Apparent Distress - INFECTION CONTROL TRAVEL OUTSIDE OF THE [place] IN LAST 30 DAYS: No - HEENT HEENT: Atraumatic, Normocephalic. negative: Conjuctival Injection - NECK Neck: Normal Inspection, Supple. negative: Lymphadenopathy-Left, Lymphadenopathy-Right - RESPIRATORY Respiratory: No Respiratory Distress, Wheezing - CARDIOVASCULAR Cardiovascular: Regular Rate, Regular Rhythm - GI/ABDOMEN Gastrointestinal: Abdomen Soft - MUSCULOSKELETAL/EXTREMETIES Musculoskeletal/Extremeties: MAEW, FROM - NEURO Level of Consciousness: Awake, Alert, Appropriate Motor/Sensory: No Motor Deficit - DERM Integumentary: Warm, Dry Course - Re-evaluation Re-evalutation: 03/01/19 10:49 DuoNeb completed. No further wheezing noted. Retractions respiratory rate even unlabored. Patient to be discharged with inhaler and prescription for steroids. He verbalized understanding to all instructions. Dictation of this chart was performed using voice recognition software; therefore, there may be some unintended grammatical errors. - Vital Signs Vital signs: Temp Pulse Resp BP Pulse Ox 97.6 F 69 16 126/68 H 96 03/01/19 10:16 03/01/19 10:16 03/01/19 10:16 03/01/19 10:16 03/01/19 10:16 Discharge - Discharge Clinical Impression: Wheeze Asthma Qualifiers: Asthma severity: mild Asthma persistence: unspecified Asthma complication type: uncomplicated Qualified Code(s): J45.909 - Unspecified asthma, uncomplicated Condition: Stable Disposition: HOME, SELF-CARE Instructions: Asthma ([facility]), Inhaled Bronchodilators ([facility]), Steroid Medication Additional Instructions: *You have been evaluated for a wheeze, asthma *Take medication as prescribed, use the inhaler as indicated *Increase fluids *Monitor your temperature, take Tylenol as indicated *Follow up with a primary care provider within 5 days *Return to ED for increasing fever, cough, worsening condition, changes, needs, trouble breathing, concerns Monitor your blood pressure. Your blood pressure was elevated today. This may be because you were anxious, in pain or because you need medication. It is important to follow up with your primary care provider for full evaluation. Prescriptions: Prednisone [Deltasone 10 mg Tablet] 10 mg PO ASDIR PRN #15 tablet PRN Reason: Forms: Elevated Blood Pressure Referrals: RADHA AGUILA MD [Primary Care Provider] - Follow up in 3-5 days
[2019-03-01] MEDS ORDERED: ALBUTEROL SULFATE HFA (90 MCG/PUFF) 8 GM MDI (1 MDI/ER DISP) IH ONE (10:47)
== END 2019-03-01 10:58 | disposition home or self-care (01) ==
LOC: ER 09:57
DX: J45.909 Unspecified asthma, uncomplicated (principal)
CPT/HCPCS: 94640; 99284; J7512; J3490; J7620

== ENCOUNTER 2019-04-08 17:09 | Emergency (ER) | payer BC ==
[2019-04-08 17:13] VITALS: BP 133/68
[2019-04-08] MEDS ORDERED: METHYLPREDNISOLONE INJ 125 MG/2 ML SDV IM ONE (17:36)
[2019-04-08] MEDS ORDERED: IPRATROPIUM/ALBUTEROL 0.5-2.5 MG/3 ML AMPUL NEB ONE ×2 (17:36→17:45)
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
[2019-04-08] MEDS ORDERED: ALBUTEROL SULFATE HFA (90 MCG/PUFF) 8 GM MDI (1 MDI/ER DISP) IH ONE (17:44)
== END 2019-04-08 18:46 | disposition home or self-care (01) ==
LOC: ER 17:09
DX: J45.21 Mild intermittent asthma with (acute) exacerbation (principal)
CPT/HCPCS: 94640; 99284; 96372; J2930; J3490; J7620

== ENCOUNTER 2019-04-30 09:45 | Emergency (ER) | payer BC ==
[2019-04-30 09:50] VITALS: BP 124/94
[2019-04-30] MEDS ORDERED: IPRATROPIUM/ALBUTEROL 0.5-2.5 MG/3 ML AMPUL NEB ONE (10:23)
[2019-04-30] MEDS ORDERED: PREDNISONE 20 MG TABLET PO ONE (10:36)
[2019-04-30] MEDS ORDERED: ALBUTEROL SULFATE HFA (90 MCG/PUFF) 8 GM MDI (1 MDI/ER DISP) IH ONE (11:23)
[2019-04-30] MEDS ORDERED: MONTELUKAST SODIUM 10 MG TABLET PO ONE (11:56)
--- NOTE | 2019-04-30 12:00 | ER Document Report ---
Entered by VICTOR MANUEL KWON SCRIBE 04/30/19 1033 Acting as scribe for:ELSY LAWSON DO ED Respiratory Problem - General Chief Complaint: Asthma Exacerbation Stated Complaint: DIFFICULTY BREATHING Time Seen by Provider: 04/30/19 10:12 Primary Care Provider: RADHA AGUILA MD [Primary Care Provider] - Follow up as needed Mode of Arrival: Ambulatory Information source: Patient Notes: 24-year-old male with a history of asthma that presents to the emergency department today with complaints of shortness of breath. Patient states he ran out of his inhaler last night. Patient states he is allergic to cats and dogs and he was around a lot of dogs yesterday and he thinks this exacerbated his asthma. Patient states he has also had a runny nose and "puffy eyes". Patient denies any fevers. TRAVEL OUTSIDE OF THE [place] IN LAST 30 DAYS: No - Related Data Allergies/Adverse Reactions: cashew nut Allergy (Verified 04/30/19 09:47) peanut Allergy (Verified 04/30/19 09:47) Past Medical History - General Information source: Patient, [facility] Records - Social History Smoking Status: Never Smoker Cigarette use (# per day): No Frequency of alcohol use: None Drug Abuse: None Lives with: Family Family History: Arthritis, CAD, DM - Mother, Hyperlipidemia, Hypertension, Other - MS mother Pulmonary Medical History: Reports: Hx Asthma Past Surgical History: Reports: Hx Adenoidectomy, Hx Tonsillectomy - ADENOIDS - Immunizations Immunizations up to date: No Hx Diphtheria, Pertussis, Tetanus Vaccination: No Review of Systems - Review of Systems Constitutional: denies: Fever EENT: See HPI, Nose congestion, Nose discharge, Other - "puffy eyes" Cardiovascular: No symptoms reported Respiratory: See HPI, Short of breath, Wheezing Gastrointestinal: No symptoms reported Genitourinary: No symptoms reported Male Genitourinary: No symptoms reported Musculoskeletal: No symptoms reported Skin: No symptoms reported Hematologic/Lymphatic: No symptoms reported Neurological/Psychological: No symptoms reported -: Yes All other systems reviewed and negative Physical Exam - Vital signs Vitals: Temp Pulse Resp BP Pulse Ox 97.6 F 101 H 20 124/94 H 98 04/30/19 09:49 04/30/19 09:49 04/30/19 09:49 04/30/19 09:49 04/30/19 09:49 Interpretation: Tachycardic - General General appearance: Appears well, Alert - HEENT Head: Normocephalic, Atraumatic Eyes: Normal Pupils: PERRL - Respiratory Respiratory status: No respiratory distress Chest status: Nontender Breath sounds: Wheezing Chest palpation: Normal - Cardiovascular Rhythm: Regular Heart sounds: Normal auscultation Murmur: No - Abdominal Inspection: Normal Distension: No distension Bowel sounds: Normal Tenderness: Nontender Organomegaly: No organomegaly - Back Back: Normal, Nontender - Extremities General upper extremity: Normal inspection, Nontender, Normal color, Normal ROM, Normal temperature General lower extremity: Normal inspection, Nontender, Normal color, Normal ROM, Normal temperature, Normal weight bearing. No: Orin's sign - Neurological Neuro grossly intact: Yes Cognition: Normal Orientation: AAOx4 [place] Coma Scale Eye Opening: Spontaneous Annette Coma Scale Verbal: Oriented Annette Coma Scale Motor: Obeys Commands [place] Coma Scale Total: 15 Speech: Normal Motor strength normal: LUE, RUE, LLE, RLE Sensory: Normal - Psychological Associated symptoms: Normal affect, Normal mood - Skin Skin Temperature: Warm Skin Moisture: Dry Skin Color: Normal Course - Re-evaluation Re-evalutation: 04/30/19 11:56 Patient is a 24-year-old male with a history of asthma who comes in with wheezing. He is out of his rescue inhaler at home. Patient is not sure if it was weather or exposure to animals that made him start wheezing. Also with nasal congestion and possibly cold. Patient is out of his rescue inhaler. Feels better after nebs and Solu-Medrol. No respiratory distress. No hypoxia. Stable for discharge. Follow-up with PMD when available. Understands and agrees with plan. Return if any further concerns. - Vital Signs Vital signs: Temp Pulse Resp BP Pulse Ox 97.6 F 80 20 124/94 H 98 04/30/19 09:49 04/30/19 10:52 04/30/19 09:49 04/30/19 09:49 04/30/19 09:49 Discharge - Discharge Clinical Impression: Asthma exacerbation Qualifiers: Asthma severity: unspecified severity Asthma persistence: unspecified Qualified Code(s): J45.901 - Unspecified asthma with (acute) exacerbation Condition: Stable Disposition: HOME, SELF-CARE Instructions: Asthma ([facility]) Prescriptions: Montelukast Sodium [Singulair 10 mg Tablet] 10 mg PO QHS #30 tablet Prednisone [Deltasone 20 mg Tablet] 2 tab PO DAILY 3 Days tablet Albuterol Sulfate [Proair HFA Inhalation Aerosol 8.5 gm MDI] 2 puff IH Q4H PRN #1 mdi PRN Reason: Referrals: RADHA AGUILA MD [Primary Care Provider] - Follow up in 3-5 days I personally performed the services described in the documentation, reviewed and edited the documentation which was dictated to the scribe in my presence, and it accurately records my words and actions.
== END 2019-04-30 12:08 | disposition home or self-care (01) ==
LOC: ER 09:45
DX: J45.901 Unspecified asthma with (acute) exacerbation (principal); R06.02 Shortness of breath; R09.89 Other specified symptoms and signs involving the circulatory and respiratory systems; H02.849 Edema of unspecified eye, unspecified eyelid
CPT/HCPCS: 99283; J7512; J3490; J7620

== ENCOUNTER 2019-08-02 09:44 | Emergency (ER) | payer BC ==
[2019-08-02] MEDS ORDERED: IPRATROPIUM/ALBUTEROL 0.5-2.5 MG/3 ML AMPUL NEB ONE (10:02)
[2019-08-02] MEDS ORDERED: DEXAMETHASONE SOD PHOS INJ 10 MG/1 ML VIAL IM ONE (10:02)
--- NOTE | 2019-08-02 10:06 | ER Document Report ---
ED Medical Screen (RME) - General Chief Complaint: Shortness Of Breath Stated Complaint: SHORTNESS OF BREATH Time Seen by Provider: 08/02/19 09:58 Primary Care Provider: RADHA AGUILA MD [Primary Care Provider] - Follow up as needed Mode of Arrival: Ambulatory Information source: Patient Notes: 24-year-old male presented to ED for shortness of breath. He states he was around cats yesterday and he is allergic to cats. He has a upper respiratory infection but he states he had to use his inhaler 120 times yesterday and his nebulizer x2. He is also on Singulair. Patient is alert and oriented short of breath with inspiratory and expiratory wheezes. I have greeted and performed a rapid initial assessment of this patient. A comprehensive ED assessment and evaluation of the patient, analysis of test results and completion of medical decision making process will be conducted by an additional ED providers. TRAVEL OUTSIDE OF THE [place] IN LAST 30 DAYS: No - Related Data Allergies/Adverse Reactions: cashew nut Allergy (Verified 08/02/19 09:57) peanut Allergy (Verified 08/02/19 09:57) Past Medical History - Social History Family history: None Pulmonary Medical History: Reports: Hx Asthma Renal/ Medical History: Denies: Hx Peritoneal Dialysis Past Surgical History: Reports: Hx Adenoidectomy, Hx Tonsillectomy - ADENOIDS - Immunizations Immunizations up to date: No Hx Diphtheria, Pertussis, Tetanus Vaccination: No Physical Exam - Vital signs Vitals: Temp Pulse Resp BP Pulse Ox 97.8 F 85 14 134/77 H 98 08/02/19 09:47 08/02/19 09:47 08/02/19 09:47 08/02/19 09:47 08/02/19 09:47 Course - Vital Signs Vital signs: Temp Pulse Resp BP Pulse Ox 97.8 F 85 14 134/77 H 98 08/02/19 09:47 08/02/19 09:47 08/02/19 09:47 08/02/19 09:47 08/02/19 09:47 Doctor's Discharge - Discharge Referrals: RADHA AGUILA MD [Primary Care Provider] - Follow up as needed
[2019-08-02] MEDS: ALBUTEROL SULFATE 0.083% NEB 2.5 MG/3 ML AMPUL NEB SCH ×2 (10:11→11:18)
--- NOTE | 2019-08-02 11:45 | RADIOLOGY REPORT (SQ) ---
EXAM DESCRIPTION: CHEST 2 VIEWS COMPLETED DATE/TIME: 08/02/2019 11:14 am REASON FOR STUDY: short of breath COMPARISON: None. TECHNIQUE: Frontal and lateral radiographic views of the chest acquired. NUMBER OF VIEWS: Two view. LIMITATIONS: None. FINDINGS: LUNGS AND PLEURA: No opacities, masses or pneumothorax. No pleural effusion. MEDIASTINUM AND HILAR STRUCTURES: No masses or contour abnormalities. HEART AND VASCULAR STRUCTURES: Heart normal size. No evidence for failure. BONES: No acute findings. HARDWARE: None in the chest. OTHER: No other significant finding. IMPRESSION: NO SIGNIFICANT RADIOGRAPHIC FINDING IN THE CHEST. TECHNICAL DOCUMENTATION: JOB ID: [id number] [employer]- All Rights Reserved Reading location - IP/workstation name: [email or web address]
--- NOTE | 2019-08-02 12:25 | ER Document Report ---
ED General - General Chief Complaint: Shortness Of Breath Stated Complaint: SHORTNESS OF BREATH Time Seen by Provider: 08/02/19 09:58 Primary Care Provider: RADHA AGUILA MD [ACTIVE STAFF] - Follow up as needed Mode of Arrival: Ambulatory Information source: Patient TRAVEL OUTSIDE OF THE [place] IN LAST 30 DAYS: No - HPI Notes: 24M w/o h/o mild intermittent asthma and he says allergy to cats > dogs. he was in house w/ cats yesterday and didn't realize one has fallen asleep on his chest when he himself was napping. he says he awoke feeling wheezy and coughing so used his inhaler "100s" of times yesterday and some this am. says he now needs a refill. he denies h/o intubation, hospitalization in ICU, steroid requiremen ts for his asthma. denies any otehr infectious or allergic symptom patterns, ie no abd pain, n/v, f/c/s, no skin changes sore throat or pruritis. - Related Data Allergies/Adverse Reactions: cashew nut Allergy (Verified 08/02/19 09:57) peanut Allergy (Verified 08/02/19 09:57) Past Medical History - General Information source: Patient - Social History Smoking Status: Current Every Day Smoker Family History: Reviewed & Not Pertinent, Arthritis, CAD, DM - Mother, Hyperlipidemia, Hypertension, Other - MS mother Patient has suicidal ideation: No Patient has homicidal ideation: No Pulmonary Medical History: Reports: Hx Asthma Renal/ Medical History: Denies: Hx Peritoneal Dialysis Past Surgical History: Reports: Hx Adenoidectomy, Hx Tonsillectomy - ADENOIDS - Immunizations Immunizations up to date: No Hx Diphtheria, Pertussis, Tetanus Vaccination: No Review of Systems - Review of Systems Constitutional: See HPI EENT: No symptoms reported Cardiovascular: No symptoms reported Respiratory: See HPI Gastrointestinal: No symptoms reported Genitourinary: No symptoms reported Male Genitourinary: No symptoms reported Musculoskeletal: No symptoms reported Skin: No symptoms reported Hematologic/Lymphatic: No symptoms reported Neurological/Psychological: No symptoms reported Physical Exam - Vital signs Vitals: Temp Pulse Resp BP Pulse Ox 97.8 F 85 14 134/77 H 98 08/02/19 09:47 08/02/19 09:47 08/02/19 09:47 08/02/19 09:47 08/02/19 09:47 Interpretation: Normal - General General appearance: Appears well, Alert - HEENT Head: Normocephalic, Atraumatic Eyes: Normal Pupils: PERRL - Respiratory Respiratory status: No respiratory distress. No: Respiratory distress, Agonal respirations, Cyanosis, Depressed respirations, Labored, Pursed lip breathing, Retractions, Tachypnea, Tripod position Chest status: Nontender Breath sounds: Normal Chest palpation: Normal - Cardiovascular Rhythm: Regular Heart sounds: Normal auscultation Murmur: No - Abdominal Inspection: Normal Distension: No distension Bowel sounds: Normal Tenderness: Nontender Organomegaly: No organomegaly - Back Back: Normal, Nontender - Extremities General upper extremity: Normal inspection, Nontender, Normal color, Normal ROM, Normal temperature General lower extremity: Normal inspection, Nontender, Normal color, Normal ROM, Normal temperature, Normal weight bearing. No: Orin's sign - Neurological Neuro grossly intact: Yes Cognition: Normal Orientation: AAOx4 Annette Coma Scale Eye Opening: Spontaneous Annette Coma Scale Verbal: Oriented Annette Coma Scale Motor: Obeys Commands Bruno Coma Scale Total: 15 Speech: Normal Motor strength normal: LUE, RUE, LLE, RLE Sensory: Normal - Psychological Associated symptoms: Normal affect, Normal mood - Skin Skin Temperature: Warm Skin Moisture: Dry Skin Color: Normal Course - Re-evaluation Re-evalutation: 08/02/19 13:31 Patient says he much is improved after nebulizer treatment. He does ask for some refill on his inhaler who brought with them since he is a lot yesterday. I will refill a short supply and he is to follow-up with a primary care doctor. He has no evidence of any respiratory distress his vitals remain within normal limits no hypoxia. Looks very well nontoxic. - Vital Signs Vital signs: Temp Pulse Resp BP Pulse Ox 97.6 F 82 16 128/70 H 99 08/02/19 14:06 08/02/19 14:06 08/02/19 14:06 08/02/19 14:06 08/02/19 14:06 - Diagnostic Test Radiology results interpreted by me: 08/02/19 12:24 Chest X-Ray 08/02/19 10:03 IMPRESSION: NO SIGNIFICANT RADIOGRAPHIC FINDING IN THE CHEST. Discharge - Discharge Clinical Impression: Asthma, Atopic asthma, Eczema Condition: Good Disposition: HOME, SELF-CARE Prescriptions: Albuterol Sulfate [Proair Digihaler] 2 puff IH Q6HP PRN #1 inhaler PRN Reason: Referrals: RADHA AGUILA MD [ACTIVE STAFF] - Follow up as needed
[2019-08-02 14:09] VITALS: BP 128/70
== END 2019-08-02 14:06 | disposition home or self-care (01) ==
LOC: ER 09:44
DX: J45.909 Unspecified asthma, uncomplicated (principal); L30.9 Dermatitis, unspecified; R06.02 Shortness of breath; F17.200 Nicotine dependence, unspecified, uncomplicated; Z91.018 Allergy to other foods
CPT/HCPCS: 94640 ×2; 99284; 96374; 71046; J1100; J7620

== ENCOUNTER 2019-09-25 20:44 | Emergency (ER) | payer BC ==
[2019-09-25 21:11] VITALS: BP 130/73
[2019-09-25] MEDS ORDERED: IPRATROPIUM/ALBUTEROL 0.5-2.5 MG/3 ML AMPUL NEB ONE (22:01)
[2019-09-25] MEDS ORDERED: KETOROLAC TROMETHAMINE INJ/PF 30 MG/1 ML SDV IM ONE (22:03)
--- NOTE | 2019-09-25 22:04 | ER Document Report ---
ED Medical Screen (RME) - General Chief Complaint: Fever Stated Complaint: FEVER, BACK PAIN Time Seen by Provider: 09/25/19 22:01 Notes: Patient is a 24-year-old male who presents emergency department with a chief complaint of body aches. Patient reports around 8 AM this morning he had acute onset of body aches to include low back pain. Patient denies urinary symptoms. Patient reports he does have a history of asthma is but is out of his inhaler. Patient reports he feels chest tightness and wheezing. Patient reports cough. Patient reports frontal headache. Patient denies nausea, vomiting or diarrhea. He reports he has had sick contacts. Did not get a flu shot this year. States he did not know he had a fever until he came to the emergency department. Patient requesting an albuterol inhaler to go home with as well as albuterol for his nebulizer machine. TRAVEL OUTSIDE OF THE [place] IN LAST 30 DAYS: No - Related Data Allergies/Adverse Reactions: cashew nut Allergy (Verified 08/02/19 09:57) peanut Allergy (Verified 08/02/19 09:57) Past Medical History - Social History Family history: None Pulmonary Medical History: Reports: Hx Asthma Renal/ Medical History: Denies: Hx Peritoneal Dialysis Past Surgical History: Reports: Hx Adenoidectomy, Hx Tonsillectomy - ADENOIDS - Immunizations Immunizations up to date: No Hx Diphtheria, Pertussis, Tetanus Vaccination: No Physical Exam - Vital signs Vitals: Temp Pulse Resp BP Pulse Ox 101.0 F H 108 H 18 130/73 H 97 09/25/19 21:08 09/25/19 21:08 09/25/19 21:08 09/25/19 21:08 09/25/19 21:08 - Respiratory Respiratory status: No respiratory distress Chest status: Tender - Patient has reproducible chest pain located in the center of his chest. Patient does have scattered rhonchi and expiratory wheeze noted throughout. Chest palpation: Normal Course - Re-evaluation Re-evalutation: 09/25/19 22:04 I have greeted and performed a rapid initial assessment of this patient. A comprehensive ED assessment and evaluation of the patient, analysis of test results and completion of the medical decision making process will be conducted by additional ED providers. 09/25/19 22:04 Patient is febrile in triage. Patient did take Tylenol 2 hours ago. Will give Toradol injection for his body aches and fever. - Vital Signs Vital signs: Temp Pulse Resp BP Pulse Ox 101.0 F H 108 H 18 130/73 H 97 09/25/19 21:08 09/25/19 21:08 09/25/19 21:08 09/25/19 21:08 09/25/19 21:08
--- NOTE | 2019-09-25 22:47 | RADIOLOGY REPORT (SQ) ---
EXAM DESCRIPTION: XR CHEST 2 VIEWS COMPLETED DATE/TME: 09/25/2019 22:01 CLINICAL HISTORY: 24 years, Male, cough, chest pain COMPARISON: Prior study from 08/02/2019 NUMBER OF VIEWS: Two views were obtained. TECHNIQUE: Frontal and lateral radiographs were obtained. LIMITATIONS: None. FINDINGS: Cardiac and mediastinal contours are normal in appearance. Lungs are clear. No pleural effusion or pneumothorax. IMPRESSION: No acute disease. copyright 2010 [employer]- All Rights Reserved
[2019-09-25 23:02] LABS: A TYPE INFLUENZA AG NEGATIVE (NEGATIVE); B INFLUENZA AG NEGATIVE (NEGATIVE)
== END 2019-09-26 01:25 | disposition left against medical advice (07) ==
LOC: ER 20:44
DX: R50.9 Fever, unspecified (principal); M54.5 Low back pain; J45.909 Unspecified asthma, uncomplicated; R07.89 Other chest pain; R05 Cough; R51 Headache; Z91.018 Allergy to other foods; Z91.010 Allergy to peanuts; Z53.20 Procedure and treatment not carried out because of patient's decision for unspecified reasons
CPT/HCPCS: 71046; 87804; J1885; J7620